=== PATIENT | male | born 1935 | race Caucasian/White ===

== ENCOUNTER 2016-10-04 13:46 | Inpatient (IN) | payer OTHER ==
[~2016-10-04 13:46] MED LIST: ETOMIDATE 20 MG/10 ML VIAL IVP ONE; SUCCINYLCHOLINE CHLORIDE 200 MG/10 ML VIAL IVP ONE
[2016-10-04 14:03] LABS: % IMMATURE GRANULYOCYTES 0.9 % (0.0-1.1); ABSOLUTE IMMATURE GRANULOCYTES 0.07 10^3/uL (0.00-0.10); ADD DIFF? NO; ADD MORPH? NO; ADD SCAN? NO; ATYPICAL LYMPHOCYTE FLAG 10 (0-99); FRAGMENT RBC FLAG 0 (0-99); HEMATOCRIT 46.8 % (40.0-51.0); LEFT SHIFT FLG 0 (0-99); LIPEMIA HEMOLYSIS FLAG 70 (0-99); MEAN CELL HEMOGLOBIN 31.7 pg (27.9-34.1); MEAN CELL HEMOGLOBIN CONCENTR. 29.9 g/dL (32.4-36.7); MEAN CELL VOLUME 105.9 fL (81.5-99.8); PLATELET CLUMPS FLAG 0 (0-99); PLATELET COUNT 174 10^3/uL (150-400); RED BLOOD CELL COUNT 4.42 10^6/uL (4.40-6.38); RED CELL DISTRIBUTION WIDTH 13.8 % (11.5-15.2)
--- NOTE | 2016-10-04 14:06 | EDPHY ---
H & P Time Seen by Provider: 10/04/16 13:44 HPI/ROS: CHIEF COMPLAINT: Stroke alert, unresponsive HISTORY OF PRESENT ILLNESS: This patient is an 80-year-old male who presents to the Emergency Department via EMS after he was found unresponsive by bystanders in the [employer] parking lot at 1330 this afternoon. Per EMS, the patient was walked out to his car by a store manager. When he sat down into the car, he became acutely unresponsive and bystanders reported an apparent left facial droop at that time. Upon EMS arrival, bystanders were performing CPR. Paramedics measured the patient's HR at 40 with strong pulses upon their arrival ; they stopped CPR and placed patient on BVM. He became tachycardic up to 200 in transport before returning to stable HR at 80 for the remainder of transport. Further history is unobtainable secondary to the patient's unresponsive condition. REVIEW OF SYSTEMS: ROS is unobtainable secondary to the patient's unresponsive condition. Past Medical/Surgical History: Unobtainable secondary to the patient's condition Social History: Unknown Physical Exam: General Appearance: Unresponsive, under manual ventilation Eyes: Pupils equal and unreactive ENT, Mouth: Mucous membranes moist Respiratory: Lungs are clear to auscultation Cardiovascular: Regular rate and rhythm Gastrointestinal: Abdomen is soft Neurological: Upgoing toes bilaterally and withdrawal in both lower extremities , unresponsive to painful stimuli, no response to sternal rubbing Skin: Warm and dry, no rash, no abrasions or lacerations Extremities: Normal appearing Constitutional: Initial Vital Signs Temperature (C) 36.4 C 10/04/16 13:46 Heart Rate 86 10/04/16 13:46 Blood Pressure 195/91 H 10/04/16 13:46 O2 Sat (%) 94 10/04/16 13:46 O2 Delivery Mode Ventilator O2 (L/minute) 100 Allergies/Adverse Reactions: No Known Allergies Allergy (Unverified 10/04/16 22:15) Home Medications: Medication Instructions Recorded Unobtainable 10/04/16 Medical Decision Making - Diagnostics EKG Interpretation: EKG interpreted by me reveals normal sinus rhythm, rate 79; first degree AV block; probable left atrial abnormality; RBBB and LAFB. Imaging Results: Chest X-Ray 10/04/16 13:48 Impression: Possible mild infiltrate or atelectasis right midlung. Recommend follow-up. ET tube in good position without evidence for pneumothorax. Head CT 10/04/16 13:48 Impression: 1. Possible dense left MCA which could be secondary to thrombus versus artifact. No other findings for acute infarct. No evidence for intracranial hemorrhage. 2. Periventricular and deep hemispheric white matter change that can be seen with small vessel ischemic disease. 3. Generalized cerebral atrophy. Results called to Dr. Hamida Ferrera at 1417 hours on 04 October 2016. Procedures: Procedure: Rapid sequence intubation. Indication for the procedure was respiratory failure. The patient was preoxygenated with 100% oxygen by face mask. The patient was given the following IV medications: 20mg IV Etomidate and 100mg IV succinylcholine. The patient was orally endotracheally intubated under direct visualization] with a 7.5 ETT. Tracheal intubation was confirmed with misting on the tube; breath sounds were auscultated equally bilaterally; appropriate color change with [place] CO2 detector. Chest X-ray shows ETT in good position. The procedure was performed by myself, Dr. Ferrera. ED Course/Re-evaluation: 1343: Stroke Alert called into the ED by EMS. Ambulance is five minutes out. Respiratory therapy has been paged. 1345: Respiratory therapist at bedside. 1346: Took EMS report at bedside: Physical exam per EMS: right-sided facial droop (per bystanders only), active gag reflex, good femoral and carotid pulses , variable HR. Vitals: BP 128/58, HR 88-100, BGL 162, 12-lead EKG not obtained. Interventions: CPR stopped at time of EMS arrival to scene, BVM ventilation performed throughout transport. 1348: 18-gauge IV established right AC. RT present, set up for intubation. 1349: Initial vitals obtained: HR 90, O2 sat 96% on BVM, Temp 36.4C. 1352: 20mg IV Etomidate administered. 1353: 100mg IV Succinylcholine administered. 1354: 16-gauge established on right forearm. 1355: Intubation performed by myself under direct visualization (see procedure note). 1355: i-Stat results obtained. 1356: Stat portable chest x-ray ordered. 1358: Chest x-ray obtained and reveals ETT in good position, no infiltrate 1402: EKG obtained and reviewed by myself. 1405: Patient transferred to CT. Will obtain CT of the head without contrast. If normal, will proceed with CTA of the head and neck at the suggestion of the on-call [facility] neurologist who was contacted at time of Stroke Alert call. 1418: CT of the head is negative per Dr. Devine, radiology. 1426: Consultation with Dr. Stapleton, [facility] neurologist. He recommends the following: If CTA is negative for thrombosis, no tPA is indicated. If positive, repeat consultation for management. 1436: Patient returned from CT. He is hypotensive at 72/49 after receiving Propofol 60mg IV for agitation. IVF given, will obs for now. Neuro exam: moving RUE and bilateral feet/ankles spontaneously. 1450: Neuro exam improved: opens eyes and gives a thumbs-up sign (both hands) to command. BP improved at 107/64. CTA head/neck negative for acute CVA. TPA not indicated. Possible primary respiratory arrest vs seizure vs cardiac event. Now improving. Consulted Dr. Wylie, will admit to ICU. Differential Diagnosis: Altered mental status including but not limited to ICH/CVA, acute coronary syndrome, pulmonary embolism, hypoglycemia, infectious process, electrolyte abnormality, head injury and intoxicants. Critical Care Time: Critical care time spent by me, Dr. Ferrera, exclusively with this patient was 45 minutes, exclusive of PA time and exclusive of procedures. The organ systems at risk were the cardiovascular, respiratory, and nervous systems and I emergently evaluated the patient, performed intubation upon arrival, repeatedly consulted with [facility] neurology, ordered stat imaging studies, and serially evaluated the patient in the ED to prevent worsening of the patient's condition. - Data Points Laboratory Results: Laboratory Results 10/04/16 13:54 10/04/16 13:54 Medications Given: Discontinued Medications Etomidate (Etomidate) 20 mg IVP EDNOW ONE Stop: 10/04/16 13:31 Last Admin: 10/04/16 13:50 Dose: 20 mg Heparin Sodium (Porcine) (Heparin Injection) 0 unit IVP ONCE ONE PRN Reason: Protocol Stop: 10/04/16 21:53 Last Admin: 10/04/16 23:13 Dose: 5 units Pantoprazole Sodium 40 mg/ (Sodium Chloride) 100 mls @ 200 mls/hr IV DAILY PASHA Stop: 04/02/17 15:29 Last Admin: 10/04/16 17:46 Dose: Not Given Cefepime HCl 2 gm/ Dextrose 100 mls @ 200 mls/hr IV Q12HRS PASHA PRN Reason: Protocol Stop: 11/03/16 15:26 Last Admin: 10/04/16 17:34 Dose: Not Given Azithromycin 500 mg/ Dextrose 255 mls @ 255 mls/hr IV ONCE ONE PRN Reason: Protocol Stop: 10/04/16 18:00 Last Admin: 10/04/16 17:56 Dose: 255 mls Midazolam HCl (Versed) 2 mg IVP ONCE ONE Stop: 10/04/16 16:06 Last Admin: 10/04/16 15:25 Dose: 2 mg Propofol (Diprivan) 60 mg IVP EDNOW ONE Stop: 10/04/16 14:31 Last Admin: 10/04/16 14:59 Dose: 60 mg Succinylcholine Chloride (Quelicin) 100 mg IVP EDNOW ONE Stop: 10/04/16 13:31 Last Admin: 10/04/16 13:50 Dose: 100 mg Departure - Departure Disposition: [facility] Inpatient Acute Clinical Impression: Acute respiratory failure Qualifiers: Respiratory failure complication: hypoxia and hypercapnia Qualified Code(s): J96.01 - Acute respiratory failure with hypoxia Condition: Critical Report Scribed for: Hamida Ferrera Report Scribed by: Jodi Velasquez Date of Report: 10/04/16 Time of Report: 13:45 Physician Review and Approval Statement: 10/04/16 13:45 Portions of this note were transcribed by a medical services manager. I personally performed a history, physical exam, medical decision making, and confirmed accuracy of information the transcribed note.
[2016-10-04 14:12] LABS: INR 1.08 (0.83-1.16); PROTIME(PATIENT) 13.9 SEC (12.0-15.0)
[2016-10-04 14:13] LABS: APTT 25.9 SEC (23.0-38.0)
[2016-10-04] MEDS ORDERED: PROPOFOL 200 MG/20 ML VIAL ONE (14:16)
[2016-10-04 14:19] LABS: ANION GAP 15 mEq/L (8-16); CARBON DIOXIDE 33 mEq/l (22-31); CHLORIDE 93 mEq/L (97-110); GLOMERULAR FILTRATION RATE > 60; GLUCOSE 165 mg/dL (70-100); POTASSIUM 4.8 mEq/L (3.5-5.2); SODIUM 141 mEq/L (134-144)
[2016-10-04] MEDS ORDERED: PROPOFOL 200 MG/20 ML VIAL IVP ONE (14:30)
[2016-10-04 14:31] LABS: TROPONIN I 0.054 ng/mL (0-0.034)
--- NOTE | 2016-10-04 14:38 | CPEKG ---
Heart Rate: 79 RR Interval: 759 P-R Interval: 216 QRSD Interval: 172 QT Interval: 432 QTC Interval: 496 P [place]: -14 QRS [place]: -81 T Wave [place]: 69 EKG Severity - ABNORMAL ECG - EKG Impression: SINUS RHYTHM EKG Impression: PROBABLE LEFT ATRIAL ABNORMALITY EKG Impression: RBBB AND LAFB Electronically Signed By: Hamiad Ferrera 04-Oct-2016 14:42:38
[2016-10-04] MEDS ORDERED: MIDAZOLAM 2 MG/2 ML VIAL ONE (14:51)
[2016-10-04 15:04] LABS: BASE EXCESS 6.5 mEq/L (-2.5-2.5); BICARBONATE 33 mEq/L (22-26); MEASURED OXYGEN SATURATION 100 % (92-95); PCO2 57 mmHg (34-38); PO2 406 mmHg (65-75); TCO2 35 mEq/L (23-27)
[2016-10-04 15:05] LABS: SIMV YES
[2016-10-04 15:06] LABS: O2 CONCENTRATIION 100 % (0-100); P/F RATIO 406 RATIO; PRESSURE SUPPORT 2
[2016-10-04] MEDS ORDERED: ALTEPLASE 2 MG VIAL IVP PRN (15:19)
[2016-10-04] MEDS ORDERED: ACETAMINOPHEN 650 MG SUPP PR PRN (15:21)
[2016-10-04] MEDS ORDERED: CEFEPIME HCL 2 GM in D5W 100 ML IV SCH (15:27)
[2016-10-04] MEDS ORDERED: NS 1,000 ML IV SCH (15:30)
[2016-10-04] MEDS ORDERED: PANTOPRAZOLE SODIUM 40 MG in NS 100 ML IV SCH (15:30)
[2016-10-04] MEDS ORDERED: ALBUTEROL 60 PUFFS/8 GM MDI IH PRN (15:33)
[2016-10-04] MEDS ORDERED: D50W 25 GM/50 ML SYR IVP PRN (15:35)
[2016-10-04] MEDS ORDERED: MIDAZOLAM 2 MG/2 ML VIAL IVP ONE (16:05)
--- NOTE | 2016-10-04 16:14 | CPEKG ---
Heart Rate: 65 RR Interval: 923 P-R Interval: 200 QRSD Interval: 176 QT Interval: 472 QTC Interval: 491 P [place]: 69 QRS [place]: -75 T Wave [place]: 66 EKG Severity - ABNORMAL ECG - EKG Impression: SINUS RHYTHM EKG Impression: RBBB AND LAFB Electronically Signed By: Rod Matt 05-Oct-2016 09:33:11
[2016-10-04] MEDS ORDERED: SUCCINYLCHOLINE CHLORIDE*ANESTHESIA ONLY*200 MG/10 ML SYR IVP ONE (16:21)
[2016-10-04] MEDS ORDERED: ETOMIDATE 40 MG/20 ML INJ ONE (16:21)
--- NOTE | 2016-10-04 16:26 | PDGENHP ---
History and Physical - Chief Complaint cardiac versus respiratory arrest - History of Present Illness 81 yo M with PMH of copd and o2 dependence presenting after being found in [employer] parking lot slumped over and with a ? of a facial droop by bystanders. The bystanders also felt that he did not have a pulse and was not breathing, and they initiated CPR waiting for EMS to arrive. Upon arrival, EMS noted that he did have a pulse, initially guillermina then tachycardic, but that his respiration was poor. He was bag masked en route to the ER and intubated for continued respiratory distress on arrival here. On initial arrival to the ER, he was completely unresponsive, no purposeful movements, no withdrawal to pain and upgoing toes bilaterally. After intubation he regained purposeful movements, was following commands and able to respond to questions by nodding, however shortly thereafter became agitated and has been requiring sedation to avoid dislodging ETT. Unfortunately family has not been located so far, and no records are available in [facility] or our EHR. He did nod his head when asked if he has copd and o2 was found in his car. It does seem that he had the oxygen on when he was found by EMS but not certain whether he was wearing it while in the store or not. History Information - Allergies/Home Medication List Allergies/Adverse Reactions: Unable to Assess Allergy (Unverified 10/04/16 14:53) Home Medications: Unobtainable 10/04/16 [Last Taken Unknown] I have personally reviewed and updated: family history, medical history, social history, surgical history Past Medical History: unobtainable 2/2 paitents status--presumed to include copd and chronic hypoxia - Surgical History Additional surgical history: unobtainable 2/2 patients status - Family History Additional family history: unobtainable 2/2 patient status - Social History Smoking Status: Unknown if ever smoked Additional social history: unobtainable Review of Systems Review of Systems: unobtainable 2/2 patients status Physical Exam Temp Pulse Resp BP Pulse Ox 36.9 C 48 L 21 H 125/78 H 98 10/04/16 15:15 10/04/16 15:50 10/04/16 15:50 10/04/16 15:50 10/04/16 15:50 O2 (L/minute) 40 Constitutional: no apparent distress, appears nourished Eyes: PERRL, EOMI Ears, Nose, Mouth, Throat: moist mucous membranes, no oral mucosal ulcers Cardiovascular: regular rate and rhythym, no murmur, rub, or gallop Respiratory: bronchial breath sounds, other (intubated) Gastrointestinal: normoactive bowel sounds, soft, non-tender abdomen Genitourinary: no bladder tenderness Skin: warm, normal color Musculoskeletal: full muscle strength, no joint effusions, No asymmetric calves Neurologic: CN II-XII Intact, No weakness Psychiatric: other (intubated and sedated) Lab Data & Imaging Review 10/04/16 13:54 10/04/16 13:54 WBC 8.00 10^3/uL (3.80-9.50) 10/04/16 13:54 RBC 4.42 10^6/uL (4.40-6.38) 10/04/16 13:54 Hgb 14.0 g/dL (13.7-17.5) 10/04/16 13:54 Hct 46.8 % (40.0-51.0) 10/04/16 13:54 MCV 105.9 fL (81.5-99.8) H 10/04/16 13:54 MCH 31.7 pg (27.9-34.1) 10/04/16 13:54 MCHC 29.9 g/dL (32.4-36.7) L 10/04/16 13:54 RDW 13.8 % (11.5-15.2) 10/04/16 13:54 Plt Count 174 10^3/uL (150-400) 10/04/16 13:54 MPV 11.0 fL (8.7-11.7) 10/04/16 13:54 Neut % (Auto) 57.2 % (39.3-74.2) 10/04/16 13:54 Lymph % (Auto) 32.1 % (15.0-45.0) 10/04/16 13:54 Desha % (Auto) 7.5 % (4.5-13.0) 10/04/16 13:54 Eos % (Auto) 1.9 % (0.6-7.6) 10/04/16 13:54 Baso % (Auto) 0.4 % (0.3-1.7) 10/04/16 13:54 Nucleat RBC Rel Count 0.0 % (0.0-0.2) 10/04/16 13:54 Absolute Neuts (auto) 4.58 10^3/uL (1.70-6.50) 10/04/16 13:54 Absolute Lymphs (auto) 2.57 10^3/uL (1.00-3.00) 10/04/16 13:54 Absolute Monos (auto) 0.60 10^3/uL (0.30-0.80) 10/04/16 13:54 Absolute Eos (auto) 0.15 10^3/uL (0.03-0.40) 10/04/16 13:54 Absolute Basos (auto) 0.03 10^3/uL (0.02-0.10) 10/04/16 13:54 Absolute Nucleated RBC 0.00 10^3/uL (0-0.01) 10/04/16 13:54 Immature Gran % 0.9 % (0.0-1.1) 10/04/16 13:54 Immature Gran # 0.07 10^3/uL (0.00-0.10) 10/04/16 13:54 PT 13.9 SEC (12.0-15.0) 10/04/16 13:54 INR 1.08 (0.83-1.16) 10/04/16 13:54 APTT 25.9 SEC (23.0-38.0) 10/04/16 13:54 Puncture Site RIGHT RADIAL 10/04/16 15:02 Patient Temperature 36.4 DEGREES 10/04/16 15:02 pCO2 57 mmHg (34-38) H 10/04/16 15:02 pO2 406 mmHg (65-75) H 10/04/16 15:02 Total CO2 35 mEq/L (23-27) H 10/04/16 15:02 ABG pH 7.37 (7.35-7.45) 10/04/16 15:02 ABG PO2/FiO2 Ratio 406 RATIO 10/04/16 15:02 ABG HCO3 33 mEq/L (22-26) H 10/04/16 15:02 ABG O2 Saturation 100 % (92-95) H 10/04/16 15:02 ABG Base Excess 6.5 mEq/L (-2.5-2.5) H 10/04/16 15:02 O2 Concentration % 100 % (0-100) 10/04/16 15:02 Set Respiration Rate 20 10/04/16 15:02 SIMV YES 10/04/16 15:02 Tidal Volume 600 10/04/16 15:02 PEEP 5 10/04/16 15:02 Pressure Support 2 10/04/16 15:02 Sodium 141 mEq/L (134-144) 10/04/16 13:54 Potassium 4.8 mEq/L (3.5-5.2) 10/04/16 13:54 Chloride 93 mEq/L (97-110) L 10/04/16 13:54 Carbon Dioxide 33 mEq/l (22-31) H 10/04/16 13:54 Anion Gap 15 mEq/L (8-16) 10/04/16 13:54 BUN 34 mg/dL (7-23) H 10/04/16 13:54 Creatinine 1.0 mg/dL (0.7-1.3) 10/04/16 13:54 Estimated GFR > 60 10/04/16 13:54 Glucose 165 mg/dL (70-100) H 10/04/16 13:54 Calcium 9.0 mg/dL (8.5-10.4) 10/04/16 13:54 Troponin I 0.054 ng/mL (0-0.034) H 10/04/16 13:54 Visualized and Interpreted Chest x-ray results: Yes Chest X-Ray results: infiltrate (vs atelectasis right mid lung) Visualized and Interpreted imaging results: Yes Interpretation: head ct: no definite infarct, ? dense left mca. head/neck cta: no significant stenosis or dissection, normal Visualized and Interpreted EKG results: Yes EKG Interpretation: Positive for: right bundle branch block EKG additional interpertation: LAFB, right atrial abnormality Assessment & Plan Assessment: Acute respiratory failure (Acute) 81 yo M presenting after being found unconscious by bystanders s/p respiratory vs cardiac arrest # acute on chronic hypoxic respiratory failure: intubated emergently in the ER, CXR with ? infiltrate in RML but no other clear abnormalities. Does have presumably underlying copd and chronic hypoxic but no records available on this patient currently. Will tx for copd exacerbation as well as possible pna for now. Another consideration would be for PE, but unable to perform CTA today as already had dye load for head/neck CTA. RBBB present on ecg with echo pending, if that is concerning for right heart strain would start empiric TX dose lovenox until CTA can be performed. Ordered D dimer, if very elevated will start empiric ac. # rml pna: infiltrate in RML atelectasis versus pna, but given patients rapid deterioration will tx as pna for now--started broad tx with cefepime and vanco, ordered blood cultures, repeat cxr in am. If less convincing for pna or other etiology more likely, would quickly taper abx. # copd with acute exacerbation: presumed underlying copd per patients head nod, will start albuterol, combivent and steroids # ? facial droop: presented as possible stroke, currently appears neurologically intact and without evidence of infarct or significant vascular issues on imaging so far. Will ask neuro to evaluate in am. # elevated trop: no olds to compare his ecg but with both rbbb and lafb on current ecg, echo ordered as above, monitoring on tele, trending trops. Unclear if patient had true cardiac arrest as noted by bystanders given presence of pulse on EMS arrival. # hypotension: proufoundly hypotensive after propofol given in ER, now hypertensive, monitoring closely, continue sedation as needed # IP status, high risk requiring ICU level care > 60 minutes of critical care time spent with patient in direct patient care interpreting labs and images and coordinating care Care plan reviewed with ER doc, Dr. Ferrera. Patient new to my care.
[2016-10-04] MEDS ORDERED: ALBUTEROL 200 PUFFS/18 GM MDI IH PRN (16:31)
[2016-10-04 16:34] LABS: COLOR YELLOW; LEUKOCYTE ESTERASE,URINE NEGATIVE (NEGATIVE); NITRITE,URINE NEGATIVE (NEGATIVE)
[2016-10-04 16:39] LABS: MUCUS TRACE /lpf (NONE-1+); RBC,URINE 25-50 /hpf (0-3)
[2016-10-04] MEDS ORDERED: AZITHROMYCIN IV 500 MG in D5W 250 ML IV ONE (17:01)
[2016-10-04 17:04] LABS: PHENCYCLIDINE URINE BCH < 6 ng/ml (NEGATIVE); PHENCYCLIDINE URINE BCH NEGATIVE (NEGATIVE)
[2016-10-04 17:07] LABS: ETHANOL SERUM < 10 mg/dL (0-10)
[2016-10-04] MEDS ORDERED: hydrALAZINE 20 MG/ML VIAL ONE (17:13)
[2016-10-04 17:15] LABS: TETRAHYDROCANNABINOL URINE 127 ng/mL (NEGATIVE)
[2016-10-04] MEDS: IPRATROPIUM/ALBUTEROL 3 ML DEYVIAL IH SCH (17:31)
[2016-10-04] MEDS: hydrALAZINE 20 MG/ML VIAL IVP PRN (17:33)
[2016-10-04 17:51] LABS: ALBUMIN 4.6 g/dL (3.5-5.0); BILIRUBIN-CONJUGATED 0.5 mg/dL (0.0-0.5); BILIRUBIN-UNCONJUGATED 0.5 mg/dL (0.0-1.1)
[2016-10-04] MEDS: INSULIN LISPRO 100 UNIT/ML SC SCH (17:52)
[2016-10-04] MEDS: methylPREDNISolone SOD SUCC 125 MG/2 ML VIAL IVP SCH ×2 (17:56→17:57)
[2016-10-04] MEDS ORDERED: VANCOMYCIN 1.5 GM in D5W 250 ML IV SCH (18:00)
--- NOTE | 2016-10-04 18:52 | GCON ---
[f rep st] CONSULTATION PULMONARY CRITICAL CARE CONSULTATION HISTORY OF PRESENT ILLNESS: The patient is an 81-year-old male who has a very vague past medical hi story, but apparently was visiting [place] from [place], [place], at the [employer]. He apparent ly needed assistance to his car, and once in his vehicle, became unresponsive. Bystanders called 91 1 and started CPR apparently. When the EMS arrived, he had a heart rate in the 40s. He was intubat ed on scene, with normalization of blood pressure and heart rate. [facility] with etomidate and succinylcholine. There was also discussion of a left facial droop on scene, so a stroke alert was called. A CT scan suggested possible dense left MCA infarct; however, a subsequent CT angiogram of the neck and head were unremarkable, showing no s ignificant stenosis, and Dr. Dominique from [facility] said that no tPA was indicated. The patie nt was then transferred to the intensive care unit where he was having difficulty following some com mands due to agitation. His oxygen saturation and blood pressure were high. The heart rate was nev er low while in the ICU. 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 He did not feel that he had been ill prior to coming, and suspected that he ran out of oxygen in route. REVIEW OF SYSTEMS: He denies previous stroke, coronary artery disease, or arrhythmias, but reports what he described as borderline hypertension. He was unable to recall any medications that he pollo garsia takes, other than Proventil. PAST SURGICAL HISTORY: Includes appendectomy and tonsillectomy. SOCIAL HISTORY: He said he has a significant smoking history, but quit 20 years ago. He also has a history of alcoholism, but has been sober for the last 20 years. He denies any other recreational drugs, other than marijuana in the past. FAMILY HISTORY: Noncontributory at this time. MEDICATIONS: Unknown. PHYSICAL EXAM: VITAL SIGNS: He was afebrile. He had an oxygen saturation of 98% on [address] L. Heart ra te of 91, with a sinus tachycardia. Blood pressure 188/91. Respirations about 18 after extubation. GENERAL APPEARANCE: He was awake and alert, and followed simple commands. Was able to move all e xtremities. He was using pursed lip respirations. He was oriented to self and location. HEENT: P upils were equally round and reactive to light, nonicteric and noninjected. Mucous membranes are mo ist, without erythema or exudate. NECK: Supple, without adenopathy or jugular vein distention. KASH NGS: Breath sounds were distant, but clear to auscultation bilaterally, without wheeze, rubs, rales . HEART: Had appeared to have a regular rate and rhythm, without murmurs, rubs, gallops. ABDOMEN: Soft, nontender, nondistended, without hepatosplenomegaly. EXTREMITIES: Showed no clubbing, cyan osis, or edema. LABORATORY DATA: Includes the head CT, as described above. A chest x-ray suggests a possible infiltrate in the right mid lung, I think that is rib. There may be some tiny nodules in the bilateral upper lobes that were not reported by radiology. His EKG shows a right bundle, and left anterior fascicular block, but no obvious ischemic changes. His labs revealed a white count of 8, hematocrit 46.8, platelets of 174. Normal Coags. Blood gas o n the ventilator showed a pH 7.37, pCO2 57, PO2 406, bicarbonate 35, saturation of 100%. Sodium is 141, potassium 4.8, chloride 93, bicarbonate 33, BUN 34, creatinine 1.0, glucose 165. Troponin 0.05 4. Urinalysis shows a specific gravity greater than 1.035, 3+ protein, 2+ blood, 25-50 red cells, b ut no significant white cells, no evidence of infection. Toxicology screen is pending at this time, as well as a blood alcohol level. ASSESSMENT AND PLAN: 1. What sounds to be more of a syncopal episode than a true cardiac arrest. This may be driven by hypoxemia, which potentially could explain his bradycardic episodes as well. In any case, he seems to have recovered, is in normal sinus rhythm now, and careful monitoring will be required. It is un certain to me about the potential stroke, so we will have to reach out to Neurology for further guid ance on this. There is certainly nothing focal at this time. 2. Respiratory failure. I believe this is due to his underlying chronic obstructive pulmonary dise ase, and if the above theory is correct, from running out of oxygen. I agree with treating him as a COPD exacerbation with steroids, bronchodilators, and short-term antibiotics until more information can be obtained. He is down to his reported baseline oxygen requirement at this time, and he certa inly shows evidence of CO2 retention chronically, which may be an ongoing issue. He denies a histor y of CPAP or obstructive sleep apnea overlap syndrome. 3. Hypertension. Until we can clarify his medications, we will use hydralazine as a p.r.n. basis f or now. His heart rate is in the 90s. I would normally use a beta jacqui, recognizing that they a re quite safe in COPD, but given his recent bradycardic episodes, I think we should avoid that for n ow. 4. Bradycardia. Cardiology consult would likely be helpful at this time. The mechanism could eith er be from hypoxemia or additional heart block, in a situation where he has bifascicular block. Ser ial troponins and an echo are pending at this time. 5. A total of about 65 minutes of critical care time was required for this complicated and unstable pat ient. /[id number]/MODL
--- NOTE | 2016-10-04 19:34 | CPEKG ---
Heart Rate: 86 RR Interval: 698 P-R Interval: 236 QRSD Interval: 190 QT Interval: 436 QTC Interval: 522 P Mcgregor: -1 QRS [place]greg[place]: -64 T Wave [place]: 62 EKG Severity - ABNORMAL ECG - EKG Impression: SINUS RHYTHM EKG Impression: PAIRED VENTRICULAR PREMATURE COMPLEXES EKG Impression: FIRST DEGREE AV BLOCK EKG Impression: RBBB AND LAFB Electronically Signed By: Rod Matt 05-Oct-2016 09:12:12
--- NOTE | 2016-10-04 21:45 | CPEKG ---
Heart Rate: 99 RR Interval: 606 P-R Interval: 192 QRSD Interval: 176 QT Interval: 388 QTC Interval: 498 P [place]: 0 QRS [place]: -69 T Wave [place]: 71 EKG Severity - ABNORMAL ECG - EKG Impression: SINUS RHYTHM EKG Impression: RBBB AND LAFB Electronically Signed By: Rod Matt 05-Oct-2016 09:10:39
[2016-10-04] MEDS ORDERED: HEPARIN 10,000 UNIT/10 ML MDV IVP ONE (21:52)
[2016-10-04] MEDS ORDERED: HEPARIN 10,000 UNIT/10 ML MDV IVP PRN (21:52)
[2016-10-04] MEDS ORDERED: HEPARIN/DEXTROSE 500 ML IV SCH (22:00)
[2016-10-04 22:22] LABS: % IMMATURE GRANULYOCYTES 0.9 % (0.0-1.1); ADD DIFF? NO; ADD MORPH? NO; ADD SCAN? NO; ATYPICAL LYMPHOCYTE FLAG 0 (0-99); FRAGMENT RBC FLAG 0 (0-99); HEMATOCRIT 44.5 % (40.0-51.0); HEMOGLOBIN 13.2 g/dL (13.7-17.5); LEFT SHIFT FLG 10 (0-99); LIPEMIA HEMOLYSIS FLAG 70 (0-99); MEAN CELL HEMOGLOBIN 31.2 pg (27.9-34.1); MEAN CELL HEMOGLOBIN CONCENTR. 29.7 g/dL (32.4-36.7); MEAN CELL VOLUME 105.2 fL (81.5-99.8); MEAN PLATELET VOLUME 11.7 fL (8.7-11.7); PLATELET CLUMPS FLAG 0 (0-99); PLATELET COUNT 143 10^3/uL (150-400); RED BLOOD CELL COUNT 4.23 10^6/uL (4.40-6.38); RED CELL DISTRIBUTION WIDTH 14.1 % (11.5-15.2)
[2016-10-04 22:35] LABS: INR 1.08 (0.83-1.16); PROTIME(PATIENT) 13.9 SEC (12.0-15.0)
[2016-10-04 22:44] LABS: APTT 29.4 SEC (23.0-38.0)
[2016-10-05] MEDS: IPRATROPIUM/ALBUTEROL 3 ML DEYVIAL IH SCH ×4 (00:37→16:35)
[2016-10-05] MEDS: methylPREDNISolone SOD SUCC 125 MG/2 ML VIAL IVP SCH ×3 (01:08→11:44)
[2016-10-05 05:40] LABS: % IMMATURE GRANULYOCYTES 1.3 % (0.0-1.1); ABSOLUTE IMMATURE GRANULOCYTES 0.11 10^3/uL (0.00-0.10); ADD DIFF? NO; ADD MORPH? NO; ADD SCAN? NO; ATYPICAL LYMPHOCYTE FLAG 0 (0-99); FRAGMENT RBC FLAG 0 (0-99); HEMATOCRIT 42.5 % (40.0-51.0); HEMOGLOBIN 12.6 g/dL (13.7-17.5); LEFT SHIFT FLG 10 (0-99); LIPEMIA HEMOLYSIS FLAG 70 (0-99); MEAN CELL HEMOGLOBIN 31.4 pg (27.9-34.1); MEAN CELL HEMOGLOBIN CONCENTR. 29.6 g/dL (32.4-36.7); MEAN PLATELET VOLUME 10.4 fL (8.7-11.7); PLATELET CLUMPS FLAG 10 (0-99); PLATELET COUNT 111 10^3/uL (150-400); RED BLOOD CELL COUNT 4.01 10^6/uL (4.40-6.38)
[2016-10-05 05:52] LABS: ANION GAP 9 mEq/L (8-16); CALCIUM 8.3 mg/dL (8.5-10.4); CARBON DIOXIDE 35 mEq/l (22-31); CHLORIDE 97 mEq/L (97-110); CREATININE 0.8 mg/dL (0.7-1.3); GLOMERULAR FILTRATION RATE > 60; GLUCOSE 142 mg/dL (70-100); MAGNESIUM 1.8 mg/dL (1.6-2.3); POTASSIUM 4.6 mEq/L (3.5-5.2); SODIUM 141 mEq/L (134-144)
[2016-10-05 06:05] LABS: TROPONIN I 0.099 ng/mL (0-0.034)
[2016-10-05] MEDS: INSULIN LISPRO 100 UNIT/ML SC SCH ×3 (07:26→18:47)
[2016-10-05] MEDS: hydrALAZINE 20 MG/ML VIAL IVP PRN (07:41)
[2016-10-05] MEDS: AZITHROMYCIN IV 250 MG in D5W 250 ML IV SCH (08:53)
--- NOTE | 2016-10-05 08:59 | CPEKG ---
Heart Rate: 91 RR Interval: 659 P-R Interval: 228 QRSD Interval: 180 QT Interval: 416 QTC Interval: 512 P [place]: -31 QRS [place]: -80 T Wave [place]: 51 EKG Severity - ABNORMAL ECG - EKG Impression: SINUS RHYTHM EKG Impression: FIRST DEGREE AV BLOCK EKG Impression: RBBB AND LAFB Electronically Signed By: Aaron Brooks 05-Oct-2016 17:40:02
[2016-10-05] MEDS ORDERED: ENOXAPARIN 40 MG/0.4 ML SYR SC SCH (09:00)
--- NOTE | 2016-10-05 09:08 | ECHO ---
[id number] + + [address] : : [place] [address] : : [phone] + + Adult Echocardiographic Report + + :Name: OLENA FITZGERALD FStudy Date: 10/05/2016 07:34 AM : : Hospital Admission Number: [id number] Loc ation: 255: :: 1935 Gender: Male Height: 72 in : :Age: 81 yrs Race: WH Weight: 200 lb : :Reason For Study: Respiratory vs cardiac arrest : : BSA: 2.1 me ters2 : + + MMode/2D Measurements \T\ Calculations IVSd: 1.7 cm LVIDd: 5.7 cm FS: 20.5 % Ao root diam: LVPWd: 1.3 cm LVIDs: 4.6 cm EDV(Teich): 4.1 cm 162.4 ml LA dimension: ESV(Teich): 4.1 cm 95.4 ml EF(Teich): 41.3 % LVLd ap4: 9.5 cm SV(MOD-sp4): EDV(MOD-sp4): 108.0 ml 150.0 ml LVLs ap4: 7.4 cm ESV(MOD-sp4): 42.0 ml EF(MOD-sp4): 72.0 % Normal Measurement Values: + + :LVIDd (3.5-5.7cm) IVSd (0.6-1.1cm) LVPWd (0.6-1.1cm) Aortic Root (2.0-3.7cm)Left Atrium (1.5-4.0cm): :LV Vol(d) (76-115ml) LV Vol(s) (29-48ml) Ejec Fraction (50-65%)PV Matt (0.6- 1.2m/s) TV Matt (0.4-1.0m/s) : :MV E Matt (0.8-1.0m/s)MV A Matt (0.3-1.0m/s)LVOT Matt (0.7-1.2m/s) Asc Ao Matt ( 0.9-1.8m/s) : + + Doppler Measurements \T\ Calculations MV E max matt: 85.5 cm/sec Ao V2 max: 172.8 cm/sec MV A max matt: 124.5 cm/sec Ao max P.9 mmHg MV E/A: 0.69 Left Ventricle The left ventricle is normal in size. There is mild concentric left ventricular hypertrophy. The left ventricle is hyperdynamic. Ejection Fraction = 70-75%. No regional wall motion abnormalities noted. Right Ventricle The right ventricle is normal in size and function. Atria The left atrial size is normal. The right atrium is mildly dilated. The interatrial septum is intact with no evidence for an atrial septal defect. Mitral Valve The mitral valve is normal in structure and function. There is no evidence of mitral valve prolapse. There is no mitral valve stenosis. There is trace mitral regurgitation. Tricuspid Valve Normal tricuspid valve. Aortic Valve The aortic valve opens well. There is no aortic stenosis. Mild aortic regurgitation. Pulmonic Valve The pulmonic valve is normal in structure and function. Mild to moderate pulmonic valvular regurgitation. Great Vessels The aortic root is normal size. Pericardium/Pleural There is no pericardial effusion. Conclusion A complete two-dimensional transthoracic echocardiogram was performed (2D, M-mode, Doppler and color flow Doppler). There is mild concentric left ventricular hypertrophy. The left ventricle is hyperdynamic. Ejection Fraction = 70-75%. The right atrium is mildly dilated. There is trace mitral regurgitation. Mild aortic regurgitation. Mild to moderate pulmonic valvular regurgitation. Final Reading Physician: Cande Sherwood signed on 10/05/2016 09:08 AM Ordering Physician: Lemuel Wylie Performed By: Krys Bynum, REHANA
--- NOTE | 2016-10-05 11:38 | PDINTPN ---
Brake Press Operator Progress Note Assessment/Plan: Assessment: Syncope: Likely due to hypoxemia, respiratory failure. No further episodes, no arrhythmias documented in hospital. COPD w/acute exacerbation: He's had increased dyspnea and cough with scant sputum compared to baseline. D-dimer elevated: PE a possibility. Bradycardia: Likely due to hypoxemia. Plan: Reduce steroid dose. Continue azithro. Restart inhalers. CT chest to R/O PE. 10/05/16 11:43 10/05/16 11:44 Subjective: Feels poorly: weak. Still dyspneic with activity, moreso than baseline. Objective: Vital Signs Temp Pulse Resp BP Pulse Ox 36.9 C 90 16 163/84 H 92 10/05/16 08:00 10/05/16 11:00 10/05/16 11:00 10/05/16 10:00 10/05/16 11:00 Laboratory Results 10/05/16 05:20 10/05/16 05:20 10/04/16 10/05/16 10/06/16 05:59 05:59 05:59 Intake Total 1448 Output Total 750 Balance 698 PT 13.9 SEC (12.0-15.0) 10/04/16 21:50 INR 1.08 (0.83-1.16) 10/04/16 21:50 Physical Exam - Physical Exam General Appearance: alert, no apparent distress EENT: normal ENT inspection Neck: normal inspection Respiratory: lungs clear, decreased breath sounds Cardiac/Chest: regular rate, rhythm, No edema Abdomen: normal bowel sounds, non-tender, soft Skin: normal color, warm/dry Extremities: normal inspection Neuro/Psych: alert, normal mood/affect, oriented x 3, cognition abnormalities ( poor memory) ICD10 Worksheet Patient Problems: Problems Problem Status Onset Acute respiratory failure Acute
--- NOTE | 2016-10-05 12:31 | HOSPPROG ---
Hospitalist Progress Note Assessment/Plan: #Acute on chronic hypoxic resp failure -ran out of oxygen yesterday. CTA pending. Normal LV function. Heparin gtt #Indeterminate trop: no CP. May be demand with acute hypoxemic event. TTE without WMA. #COPD exacerbation: nebs, abx, reduce steroids #Bradycardia: likely due to hypoxemic event #Syncope: due to hypoxemia. No valvular abnormalities or events on telemetry #Weakness: PT/OT #Diet: regular #DVT ppx: #Disp: warrants inpt admission with acute hypoxia, syncope. Cont steroids, pulse ox Subjective: been very SOB with exertion for several weeks. No CP. Dry cough Objective: Vital Signs Temp Pulse Resp BP Pulse Ox 36.9 C 103 H 18 151/85 H 96 10/05/16 08:00 10/05/16 12:00 10/05/16 12:00 10/05/16 12:00 10/05/16 12:00 Laboratory Results 10/05/16 05:20 10/05/16 05:20 10/04/16 10/05/16 10/06/16 05:59 05:59 05:59 Intake Total 1448 Output Total 750 Balance 698 PT 13.9 SEC (12.0-15.0) 10/04/16 21:50 INR 1.08 (0.83-1.16) 10/04/16 21:50 - Physical Exam Constitutional: no apparent distress, chronically ill appearing Eyes: PERRL Ears, Nose, Mouth, Throat: moist mucous membranes Cardiovascular: regular rate and rhythym Respiratory: other (decreased breath sounds throughout) Gastrointestinal: normoactive bowel sounds, soft, non-tender abdomen Genitourinary: no bladder fullness Skin: warm Musculoskeletal: full muscle strength Neurologic: AAOx3, CN II-XII Intact Psychiatric: interacting appropriately ICD10 Worksheet Patient Problems: Problems Problem Status Onset Acute respiratory failure Acute
[2016-10-05] MEDS ORDERED: IOPAMIDOL (ISOVUE 370) 100 ML BTL IV ONE (13:59)
[2016-10-05] MEDS: METOPROLOL TARTRATE 25 MG TAB PO SCH ×2 (15:41→22:14)
[2016-10-05] MEDS: TIOTROPIUM INHALER 18 MCG/DOSE 5 DOSE/MDI IH SCH (16:41)
[2016-10-05] MEDS: BUDESONIDE/FORMOTEROL 160/4.5 60 PUFFS/MDI IH SCH ×2 (16:44→21:10)
--- NOTE | 2016-10-05 17:51 | NEUROPROG ---
Assessment: [id number] ICU 255 CC: Dr. Wylie consulted for Cardiac vs Respiratory Arrest. Results placed in the EMR for her review. HPI: This 81M patient was initially seen 10/05/16. He was admitted 10/04/16 to [facility] after he was witnessed to have loss of awareness and possible left facial droop by bystanders. EMS arrived and found him to have a pulse but poor respiration. He became unresponsive in the ER so was intubated but then could answer questions by nodding after intubation. He was given therapy for agitation though so again was not responding to questions. Head CT shows possible dense left MCA but was otherwise normal and head/neck CTA unremarkable. He was intubated overnight but this morning he improved dramatically and was extubated. He currently has no neurologic deficits other than baseline short term memory deficits which his daughter told his nurse was a long-standing problem. He denied focal weakness,sensory changes, or vision issues. It appears his baseline COPD may have had an acute exacerbation causing respiratory arrest to explain his presentation. PMHx: COPD on O2, baseline memory problem SHx: Speaks Chinese FHx: daughter alive ROS: Pt denied acute fever, total vision loss, active severe chest pain, respiratory failure, total body severe rash, total bowel/bladder incontinence, psychosis, active seizures, or active bleeding O: VS bp 151/85 P103H RR18 Satting 96% on 4L NC Temp 36.9C, NSR General: Alert Eyes: Fundoscopic exam not able to visualize optic disks CV: Heart RRR, no murmur, no carotid bruit Lungs: Clear to auscultation bilaterally, no rhonci or rales Neuro: - Mental: . Oriented x person/place but not date . concentration appears normal . speech fluency/comprehension normal . memory appears to have problems with short term recall (mild) . fund of knowledge appear intact - Cranial Nerves: . II: PERRL, VFFTC . III/IV/: EOMI, no nystagmus, normal smooth pursuits, no Ptosis . V: facial sensation intact to LT . VII: face symmetric to eye closure and smile . VIII: hearing intact to conversation . IX/X: uvula raises symmetrically . XI: SCM 5/5 B/L strength . XII: tongue protrudes midline w/nl strength - Motor: . Tone: normal tone in all 4 extrem . Strength: no pronator drift, strength 5/5 throughout (B/L delt, bic, tri, hand united states attorney, hf/he, df/pf) - Reflexes: B/L bic/BR/patella 2/4 - Sensory: all 4 extrem intact to light touch - Coord: [id number] wnl, JACOB wnl, [id number] wnl - Gait: deferred Labs: 10/05/16- CBC Plt 111L, CMP CO2 35H GLuc 142H Ca 8.3L, Trop 0.109, 0.099 Rads: 10/04/16- Head CT w/o con: possible dense left MCA vs artifact, periventricular and deep hemispheric white matter changes likely from chronic microvascular disease, generalized atrophy (I personally visualized the images on 10/05/16) 10/04/16- CTA head/neck: < 50% stenosis in carotid arteries, no flow limiting stenosis,no thrombus seen in the brain 10/04/16- TTE: no thrombus seen 10/05/16- 24 hour telemetry: no afib seen Assessment: 1.Acute on Chronic Respiratory Distress: It appears his baseline COPD requiring O2 had an exacerbation leading to respiratory arrest. He has since improved and now extubated with no respiratory distress on [place] oxygen. 2.Syncope with respiratory arrest and possible left facial droop: It was unclear if he had any neurologic deficits when he passed out but he currently has no neurologic deficits (other than baseline memory issues) and his head CT, CTA head/neck, TTE, and telemetry have not indicated any increased stroke risk. The dense MCA on head CT seems more likely an artifact. He declined a brain MRI and does not want any further stroke evaluation at this time so I will sign off. 3.Baseline Memory Issues: He said he has seen the [place] [facility] for this complaint in the past but no diagnosis was given. This is a stable issue per patient. Plan: -Pt declined brain MRI or any further neurologic evaluation, I also feel a stroke or TIA seems unlikely at this time -Neurology will sign off, no further neurologic w/u needed at this time Objective: Vital Signs Temp Pulse Resp BP Pulse Ox 36.9 C 78 12 157/83 H 100 10/05/16 08:00 10/05/16 16:50 10/05/16 16:50 10/05/16 15:41 10/05/16 16:50 Laboratory Results 10/05/16 05:20 10/05/16 05:20 10/04/16 10/05/16 10/06/16 05:59 05:59 05:59 Intake Total 1448 Output Total 750 Balance 698 PT 13.9 SEC (12.0-15.0) 10/04/16 21:50 INR 1.08 (0.83-1.16) 10/04/16 21:50 Allergies/Adverse Reactions: No Known Allergies Allergy (Unverified 10/04/16 22:15)
[2016-10-05] MEDS: predniSONE 20 MG TAB PO SCH (18:47)
[2016-10-06] MEDS: hydrALAZINE 20 MG/ML VIAL IVP PRN (00:08)
[2016-10-06] MEDS: IPRATROPIUM/ALBUTEROL 3 ML DEYVIAL IH SCH ×2 (00:27→05:25)
[2016-10-06 05:32] LABS: % IMMATURE GRANULYOCYTES 0.3 % (0.0-1.1); ABSOLUTE IMMATURE GRANULOCYTES 0.03 10^3/uL (0.00-0.10); ADD DIFF? NO; ADD MORPH? NO; ADD SCAN? NO; ATYPICAL LYMPHOCYTE FLAG 0 (0-99); FRAGMENT RBC FLAG 0 (0-99); HEMATOCRIT 43.3 % (40.0-51.0); HEMOGLOBIN 13.4 g/dL (13.7-17.5); LEFT SHIFT FLG 0 (0-99); LIPEMIA HEMOLYSIS FLAG 80 (0-99); MEAN CELL HEMOGLOBIN 31.5 pg (27.9-34.1); MEAN CELL HEMOGLOBIN CONCENTR. 30.9 g/dL (32.4-36.7); MEAN CELL VOLUME 101.6 fL (81.5-99.8); MEAN PLATELET VOLUME 11.5 fL (8.7-11.7); PLATELET CLUMPS FLAG 10 (0-99); PLATELET COUNT 148 10^3/uL (150-400); RED BLOOD CELL COUNT 4.26 10^6/uL (4.40-6.38); RED CELL DISTRIBUTION WIDTH 14.3 % (11.5-15.2)
[2016-10-06 05:57] LABS: ANION GAP 9 mEq/L (8-16); CALCIUM 9.1 mg/dL (8.5-10.4); CARBON DIOXIDE 38 mEq/l (22-31); CHLORIDE 92 mEq/L (97-110); CREATININE 0.8 mg/dL (0.7-1.3); GLOMERULAR FILTRATION RATE > 60; GLUCOSE 108 mg/dL (70-100); POTASSIUM 4.4 mEq/L (3.5-5.2); SODIUM 139 mEq/L (134-144)
[2016-10-06] MEDS ORDERED: HALOPERIDOL LACT 5 MG/ML INJ IVP ONE (06:11)
[2016-10-06] MEDS ORDERED: HALOPERIDOL LACT 5 MG/ML INJ ONE (06:12)
[2016-10-06] MEDS: INSULIN LISPRO 100 UNIT/ML SC SCH ×3 (07:40→16:24)
[2016-10-06] MEDS: LISINOPRIL 5 MG TAB PO SCH (08:37)
[2016-10-06] MEDS: METOPROLOL TARTRATE 25 MG TAB PO SCH ×2 (08:37→20:23)
[2016-10-06] MEDS: predniSONE 20 MG TAB PO SCH ×2 (08:37→18:04)
[2016-10-06] MEDS: AZITHROMYCIN IV 250 MG in D5W 250 ML IV SCH (08:38)
--- NOTE | 2016-10-06 09:55 | HOSPPROG ---
Hospitalist Progress Note Assessment/Plan: #Acute on chronic hypoxic resp failure -ran out of oxygen yesterday. CTA negative. TTE with normal LV function. #Acute encephalopathy: no e/o PE. Mildly elevated trop, but normal wall motion abnormalities. Afebrile. UA with few whites, await culture #Indeterminate trop: no CP. May be demand with acute hypoxemic event. TTE without WMA. #COPD exacerbation: nebs, abx, steroids #Bradycardia: likely due to hypoxemic event #Syncope: due to hypoxemia. 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 No surgery warranted now #Weakness: PT/OT. Lives alone in [facility], will likely need placement #Diet: regular #DVT ppx: Lovenox #Disp: warrants inpt admission with acute hypoxia, syncope. Cont steroids, pulse ox Subjective: more confused overnight. Sats dropped to 70s last night. Denies CP or SOB Objective: Vital Signs Temp Pulse Resp BP Pulse Ox 36.6 C 108 H 16 145/96 H 95 10/06/16 08:00 10/06/16 08:00 10/06/16 08:00 10/06/16 08:00 10/06/16 08:00 Laboratory Results 10/06/16 05:15 10/06/16 05:15 10/05/16 10/06/16 10/07/16 05:59 05:59 05:59 Intake Total 1448 1459 Output Total 750 Balance 698 1459 PT 13.9 SEC (12.0-15.0) 10/04/16 21:50 INR 1.08 (0.83-1.16) 10/04/16 21:50 - Physical Exam Constitutional: chronically ill appearing Eyes: PERRL Ears, Nose, Mouth, Throat: moist mucous membranes, hearing normal Cardiovascular: regular rate and rhythym, no murmur, rub, or gallop Respiratory: no respiratory distress, reduced air movement Gastrointestinal: normoactive bowel sounds, soft, non-tender abdomen Genitourinary: no bladder fullness Skin: warm Musculoskeletal: full muscle strength Neurologic: CN II-XII Intact, other (alert to place only) Psychiatric: encephalopathic ICD10 Worksheet Patient Problems: Problems Problem Status Onset Acute respiratory failure Acute
[2016-10-06] MEDS: BUDESONIDE/FORMOTEROL 160/4.5 60 PUFFS/MDI IH SCH ×2 (10:38→20:24)
[2016-10-06] MEDS: TIOTROPIUM INHALER 18 MCG/DOSE 5 DOSE/MDI IH SCH (10:38)
[2016-10-06] MEDS: ENOXAPARIN 40 MG/0.4 ML SYR SC SCH (11:43)
--- NOTE | 2016-10-06 12:14 | PDINTPN ---
Psychological Operations Progress Note Assessment/Plan: Assessment: Syncope: Likely due to hypoxemia, respiratory failure. No further episodes, no arrhythmias documented in hospital. COPD w/acute exacerbation: He's had increased dyspnea and cough with scant sputum compared to baseline. D-dimer elevated: PE excluded by CT. Bradycardia: Likely due to hypoxemia. 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 No surgery at this point. Plan: Reduce steroid dose. Continue azithro, inhalers. Outpatient follow-up of thoracic aorta ulcer with Dr. Melissa. 10/06/16 12:20 Subjective: Feels OK, breathing unlabored. Objective: Vital Signs Temp Pulse Resp BP Pulse Ox 36.6 C 71 17 128/65 H 99 10/06/16 12:00 10/06/16 12:00 10/06/16 12:00 10/06/16 12:00 10/06/16 12:00 Laboratory Results 10/06/16 05:15 10/06/16 05:15 10/05/16 10/06/16 10/07/16 05:59 05:59 05:59 Intake Total 1448 1459 Output Total 750 Balance 698 1459 PT 13.9 SEC (12.0-15.0) 10/04/16 21:50 INR 1.08 (0.83-1.16) 10/04/16 21:50 CT Chest: No PE. 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 Enlarged PAs. Emphysema. Reviewed images. Physical Exam - Physical Exam General Appearance: alert, no apparent distress EENT: normal ENT inspection Neck: normal inspection Respiratory: decreased breath sounds Cardiac/Chest: regular rate, rhythm, No edema Abdomen: normal bowel sounds, non-tender, soft Skin: normal color, warm/dry Extremities: normal inspection Neuro/Psych: alert, normal mood/affect, oriented x 3 ICD10 Worksheet Patient Problems: Problems Problem Status Onset Acute respiratory failure Acute
[2016-10-06] MEDS: ACYCLOVIR 5% TP SCH ×3 (15:56→22:12)
[2016-10-06] MEDS ORDERED: IPRATROPIUM/ALBUTEROL 4GM MDI IH SCH (16:00)
[2016-10-06] MEDS: ALBUTEROL 200 PUFFS/18 GM MDI IH SCH ×2 (16:12→20:25)
[2016-10-06] MEDS: OMEGA-3 FATTY ACIDS 1,000 MG CAP PO SCH (20:22)
[2016-10-06] MEDS: NITROGLYCERIN 0.4 MG BTL SL PRN (22:11)
[2016-10-07] MEDS: ACYCLOVIR 5% TP SCH ×8 (00:08→21:36)
[2016-10-07] MEDS: hydrALAZINE 20 MG/ML VIAL IVP PRN (00:09)
[2016-10-07] MEDS: NITROGLYCERIN 0.4 MG BTL SL PRN (02:35)
[2016-10-07 05:12] LABS: % IMMATURE GRANULYOCYTES 0.6 % (0.0-1.1); ABSOLUTE IMMATURE GRANULOCYTES 0.06 10^3/uL (0.00-0.10); ADD DIFF? NO; ADD MORPH? NO; ADD SCAN? NO; ATYPICAL LYMPHOCYTE FLAG 0 (0-99); FRAGMENT RBC FLAG 0 (0-99); HEMATOCRIT 44.4 % (40.0-51.0); HEMOGLOBIN 13.6 g/dL (13.7-17.5); LEFT SHIFT FLG 0 (0-99); LIPEMIA HEMOLYSIS FLAG 80 (0-99); MEAN CELL HEMOGLOBIN 31.7 pg (27.9-34.1); MEAN CELL HEMOGLOBIN CONCENTR. 30.6 g/dL (32.4-36.7); MEAN CELL VOLUME 103.5 fL (81.5-99.8); MEAN PLATELET VOLUME 11.2 fL (8.7-11.7); PLATELET CLUMPS FLAG 0 (0-99); PLATELET COUNT 150 10^3/uL (150-400); RED BLOOD CELL COUNT 4.29 10^6/uL (4.40-6.38); RED CELL DISTRIBUTION WIDTH 14.4 % (11.5-15.2)
[2016-10-07 05:30] LABS: CALCIUM 8.7 mg/dL (8.5-10.4); CHLORIDE 90 mEq/L (97-110); CREATININE 0.8 mg/dL (0.7-1.3); GLOMERULAR FILTRATION RATE > 60; GLUCOSE 124 mg/dL (70-100); POTASSIUM 4.4 mEq/L (3.5-5.2); SODIUM 138 mEq/L (134-144)
[2016-10-07 05:36] LABS: ANION GAP 8 mEq/L (8-16); CARBON DIOXIDE 40 mEq/l (22-31)
[2016-10-07] MEDS: ALBUTEROL 200 PUFFS/18 GM MDI IH SCH ×4 (06:04→20:39)
[2016-10-07] MEDS: INSULIN LISPRO 100 UNIT/ML SC SCH ×3 (08:31→18:27)
[2016-10-07] MEDS: METOPROLOL TARTRATE 25 MG TAB PO SCH ×2 (09:15→21:34)
[2016-10-07] MEDS: OMEGA-3 FATTY ACIDS 1,000 MG CAP PO SCH ×2 (09:15→21:33)
[2016-10-07] MEDS: ASPIRIN EC 81 MG TAB PO SCH (09:15)
[2016-10-07] MEDS: predniSONE 20 MG TAB PO SCH ×2 (09:15→18:28)
[2016-10-07] MEDS: LISINOPRIL 5 MG TAB PO SCH (09:15)
[2016-10-07] MEDS: ENOXAPARIN 40 MG/0.4 ML SYR SC SCH (09:15)
[2016-10-07] MEDS: BUDESONIDE/FORMOTEROL 160/4.5 60 PUFFS/MDI IH SCH ×2 (09:28→20:38)
[2016-10-07] MEDS: TIOTROPIUM INHALER 18 MCG/DOSE 5 DOSE/MDI IH SCH (09:29)
[2016-10-07] MEDS: AZITHROMYCIN IV 250 MG in D5W 250 ML IV SCH (09:58)
--- NOTE | 2016-10-07 10:48 | HOSPPROG ---
Hospitalist Progress Note Assessment/Plan: #Acute on chronic hypoxic resp failure -ran out of oxygen. CTA negative. TTE with normal LV function. #Acute encephalopathy: resolved. no e/o PE. Mildly elevated trop, but normal wall motion abnormalities. Afebrile. UA with few whites, negative culture #Indeterminate trop: no CP. May be demand with acute hypoxemic event. TTE without WMA. #COPD exacerbation: nebs, abx, steroids #Bradycardia: likely due to hypoxemic event. resolved #Syncope: due to hypoxemia. 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 No surgery warranted now. FU in 3 months #Weakness: PT/OT. Lives alone in [place], will likely need placement, but he is hesitant #Diet: regular #DVT ppx: Lovenox #Goals: rehab wld be best option now. He wants to speak to Hayley (daughter). I have not been able to contact #Disp: warrants inpt admission with acute hypoxia, syncope. Cont steroids, pulse ox Subjective: "less confused" want to go home Objective: Vital Signs Temp Pulse Resp BP Pulse Ox 37 C 86 18 131/71 H 95 10/07/16 07:47 10/07/16 07:47 10/07/16 07:47 10/07/16 07:47 10/07/16 07:47 Microbiology 10/04/16 16:08 Urine Culture - Final Urine,Catheterized Laboratory Results 10/07/16 05:04 10/07/16 05:04 10/06/16 10/07/16 10/08/16 05:59 05:59 05:59 Intake Total 1459 500 Output Total 825 Balance 1459 -325 PT 13.9 SEC (12.0-15.0) 10/04/16 21:50 INR 1.08 (0.83-1.16) 10/04/16 21:50 - Physical Exam Constitutional: chronically ill appearing Eyes: PERRL Ears, Nose, Mouth, Throat: moist mucous membranes, hearing normal Cardiovascular: regular rate and rhythym, no murmur, rub, or gallop Respiratory: reduced air movement Gastrointestinal: normoactive bowel sounds Musculoskeletal: full muscle strength Neurologic: AAOx3, CN II-XII Intact, other (slow to answer, but does appropriately) Psychiatric: interacting appropriately ICD10 Worksheet Patient Problems: Problems Problem Status Onset Acute respiratory failure Acute
[2016-10-08] MEDS: ACYCLOVIR 5% TP SCH ×9 (00:30→23:10)
[2016-10-08] MEDS: ACETAMINOPHEN 325 MG TAB PO PRN ×2 (00:31→09:09)
[2016-10-08 05:15] LABS: HEMATOCRIT 43.6 % (40.0-51.0); HEMOGLOBIN 12.9 g/dL (13.7-17.5); MEAN CELL HEMOGLOBIN CONCENTR. 29.6 g/dL (32.4-36.7); MEAN CELL VOLUME 104.8 fL (81.5-99.8); RED BLOOD CELL COUNT 4.16 10^6/uL (4.40-6.38); RED CELL DISTRIBUTION WIDTH 14.3 % (11.5-15.2)
[2016-10-08 05:23] LABS: CALCIUM 8.7 mg/dL (8.5-10.4); CHLORIDE 92 mEq/L (97-110); CREATININE 0.8 mg/dL (0.7-1.3); GLOMERULAR FILTRATION RATE > 60; GLUCOSE 115 mg/dL (70-100); SODIUM 138 mEq/L (134-144)
[2016-10-08 05:26] LABS: POTASSIUM 4.9 mEq/L (3.5-5.2)
[2016-10-08 05:30] LABS: ANION GAP 6 mEq/L (8-16); CARBON DIOXIDE 40 mEq/l (22-31)
[2016-10-08] MEDS: ALBUTEROL 200 PUFFS/18 GM MDI IH SCH ×4 (05:44→22:12)
[2016-10-08] MEDS: TIOTROPIUM INHALER 18 MCG/DOSE 5 DOSE/MDI IH SCH (07:15)
[2016-10-08] MEDS: BUDESONIDE/FORMOTEROL 160/4.5 60 PUFFS/MDI IH SCH ×2 (07:16→22:13)
[2016-10-08] MEDS: INSULIN LISPRO 100 UNIT/ML SC SCH ×3 (08:00→17:12)
[2016-10-08] MEDS: ASPIRIN EC 81 MG TAB PO SCH (09:09)
[2016-10-08] MEDS: ENOXAPARIN 40 MG/0.4 ML SYR SC SCH (09:09)
[2016-10-08] MEDS: OMEGA-3 FATTY ACIDS 1,000 MG CAP PO SCH ×2 (09:09→20:28)
[2016-10-08] MEDS: predniSONE 20 MG TAB PO SCH ×2 (09:09→16:57)
[2016-10-08] MEDS: LISINOPRIL 5 MG TAB PO SCH (09:09)
[2016-10-08] MEDS: METOPROLOL TARTRATE 25 MG TAB PO SCH ×2 (09:10→20:28)
[2016-10-08] MEDS: AZITHROMYCIN IV 250 MG in D5W 250 ML IV SCH (10:27)
--- NOTE | 2016-10-08 12:37 | HOSPPROG ---
Hospitalist Progress Note Assessment/Plan: #Acute on chronic hypoxic resp failure secondary to acute exacerbation of COPD - Ran out of O2 at home. Intubated in the field. Extubated in ICU afternoon of admission. on 4 LPM today, which pt states is his home requirement (VS yanni says 8 LPM, but during my exam he is satting in the 90's on 4 LPM). CTA negative. TTE with normal LV function -cont nebs, steroids (day 5), wean O2 as able #Acute encephalopathy: resolved. no e/o PE. Mildly elevated trop, but normal wall motion abnormalities. Afebrile. UA with few whites, negative culture #Indeterminate trop: no CP. May be demand with acute hypoxemic event. TTE without WMA. #Bradycardia: likely due to hypoxemic event. resolved #Syncope: due to hypoxemia. 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 No surgery warranted now. FU outpt in 3 months #Weakness: PT/OT. Lives alone in [facility], will likely need placement, daughter researching SNF options today #Diet: regular #DVT ppx: Lovenox #Goals: planning for SNF rehab in 1-2 days #Disp: cont inpt Subjective: PT states he is doing fine. Denies CP or SOB. Feels close to his baseline. No fevers. Objective: Vital Signs Temp Pulse Resp BP Pulse Ox 36.4 C 54 L 15 118/64 99 10/08/16 11:29 10/08/16 11:29 10/08/16 11:29 10/08/16 11:29 10/08/16 11:29 Laboratory Results 10/08/16 04:14 10/08/16 04:14 10/07/16 10/08/16 10/09/16 05:59 05:59 05:59 Intake Total 500 1660 Output Total 825 635 Balance -325 1025 PT 13.9 SEC (12.0-15.0) 10/04/16 21:50 INR 1.08 (0.83-1.16) 10/04/16 21:50 - Physical Exam Constitutional: no apparent distress Eyes: PERRL Ears, Nose, Mouth, Throat: moist mucous membranes Cardiovascular: regular rate and rhythym Respiratory: reduced air movement Gastrointestinal: normoactive bowel sounds, soft, non-tender abdomen Skin: warm Musculoskeletal: full muscle strength Neurologic: AAOx3 Psychiatric: poor insight ICD10 Worksheet Patient Problems: Problems Problem Status Onset Acute respiratory failure Acute
[2016-10-08] MEDS: hydrALAZINE 20 MG/ML VIAL IVP PRN (16:51)
[2016-10-09] MEDS: ACYCLOVIR 5% TP SCH ×7 (00:18→19:43)
[2016-10-09] MEDS: ALBUTEROL 200 PUFFS/18 GM MDI IH SCH ×4 (05:27→22:23)
[2016-10-09 05:33] LABS: CALCIUM 8.9 mg/dL (8.5-10.4); CHLORIDE 90 mEq/L (97-110); CREATININE 0.8 mg/dL (0.7-1.3); GLOMERULAR FILTRATION RATE > 60; GLUCOSE 95 mg/dL (70-100); POTASSIUM 4.8 mEq/L (3.5-5.2); SODIUM 137 mEq/L (134-144)
[2016-10-09 05:39] LABS: ANION GAP 7 mEq/L (8-16); CARBON DIOXIDE 40 mEq/l (22-31)
[2016-10-09] MEDS: BUDESONIDE/FORMOTEROL 160/4.5 60 PUFFS/MDI IH SCH ×2 (08:05→22:24)
[2016-10-09] MEDS: TIOTROPIUM INHALER 18 MCG/DOSE 5 DOSE/MDI IH SCH (08:06)
[2016-10-09] MEDS: ENOXAPARIN 40 MG/0.4 ML SYR SC SCH (08:26)
[2016-10-09] MEDS: OMEGA-3 FATTY ACIDS 1,000 MG CAP PO SCH ×2 (08:26→20:56)
[2016-10-09] MEDS: LISINOPRIL 5 MG TAB PO SCH (08:27)
[2016-10-09] MEDS: predniSONE 20 MG TAB PO SCH (08:28)
[2016-10-09] MEDS: ACETAMINOPHEN 325 MG TAB PO PRN (08:28)
[2016-10-09] MEDS: ASPIRIN EC 81 MG TAB PO SCH (08:28)
[2016-10-09] MEDS: METOPROLOL TARTRATE 25 MG TAB PO SCH ×2 (08:29→20:54)
[2016-10-09] MEDS: INSULIN LISPRO 100 UNIT/ML SC SCH ×3 (08:35→18:44)
--- NOTE | 2016-10-09 09:16 | HOSPPROG ---
Hospitalist Progress Note Assessment/Plan: #Acute on chronic hypoxic resp failure secondary to acute exacerbation of COPD - Ran out of O2 at home. Received chest compressions and intubated in the field. Extubated in ICU afternoon of admission. O2 requirements up and down from 4-8 LPM. Home requirement is 4 LPM and he has been stable on 4 LPM each time I've seen him x2 d. CTA negative. TTE with normal LV function -cont nebs, on home O2 requirement -he's received 5 day steroid burst, will dc steroids. This event was provoked by his running out of O2 thus I don't see a need for prolonged steroid taper. #Acute encephalopathy: Initial head CT raised question of L MCA CVA. Query if pt has underlying dementia vs some psych hx (daughter reports paranoia and "craziness"). No e/o PE or infection. Mildly elevated trop, but no wall motion abnormalities. Afebrile. UA with few whites, negative culture. -brain MRI today to eval for CVA, re-consult if rules in. He is already on ASA. -behavioral health consult requested for further evaluation of possible psych issues -check b12, folate #Indeterminate trop: no CP. Suspect demand with acute hypoxemic event. TTE without WMA. RN reports ST elevation on tele this am, which is difficult to interpret -repeat EKG and trop reassuring #Bradycardia: likely due to hypoxemic event. resolved #Syncope: due to hypoxemia. 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 No surgery warranted now. FU outpt in 3 months #Weakness: PT/OT. Lives alone in [facility], which does not seem appropriate. He will need placement, daughter researching SNF options today #Diet: regular #DVT ppx: Lovenox #Goals: planning for SNF rehab possibly in 1-2 days #Disp: cont inpt Subjective: Pt is not interacting much. Quiet. Opens eyes and intermittently follows commands. Moves all 4 extremities. Breathing seems to be near baseline. Complains of chest pain daily, had compressions. Objective: Vital Signs Temp Pulse Resp BP Pulse Ox 36.8 C 83 20 133/71 H 98 10/09/16 08:00 10/09/16 08:29 10/09/16 08:09 10/09/16 08:29 10/09/16 08:09 Laboratory Results 10/08/16 04:14 10/09/16 04:16 10/08/16 10/09/16 10/10/16 05:59 05:59 05:59 Intake Total 1660 602.5 Output Total 635 725 Balance 1025 -122.5 PT 13.9 SEC (12.0-15.0) 10/04/16 21:50 INR 1.08 (0.83-1.16) 10/04/16 21:50 - Physical Exam Cardiovascular: regular rate and rhythym Respiratory: no respiratory distress Gastrointestinal: normoactive bowel sounds Skin: warm Musculoskeletal: full muscle strength Neurologic: other (no facial droop, pronator drift negative ) Psychiatric: encephalopathic ICD10 Worksheet Patient Problems: Problems Problem Status Onset Acute respiratory failure Acute
--- NOTE | 2016-10-09 09:37 | CPEKG ---
Heart Rate: 58 RR Interval: 1034 P-R Interval: 192 QRSD Interval: 184 QT Interval: 452 QTC Interval: 445 P Home: -18 QRS Home: -74 T Wave Home: 19 EKG Severity - ABNORMAL ECG - EKG Impression: SINUS RHYTHM EKG Impression: RBBB AND LAFB Electronically Signed By: Aaron Brooks 09-Oct-2016 10:55:26
[2016-10-09] MEDS: AZITHROMYCIN IV 250 MG in D5W 250 ML IV SCH (10:46)
[2016-10-09 12:15] LABS: FOLATE SERUM 4.05 ng/mL (2.80 - >20.00)
[2016-10-09] MEDS ORDERED: MAGNESIUM HYDROXIDE 30 ML UDCUP PO PRN (16:04)
[2016-10-09] MEDS ORDERED: POLYETHYLENE GLYCOL 3350 17 GM PKT PO PRN (16:04)
[2016-10-09] MEDS ORDERED: LACTULOSE 20 GM/30 ML UDCUP PO PRN (16:04)
[2016-10-09] MEDS ORDERED: BISACODYL 10 MG SUPP PR PRN (16:04)
[2016-10-09] MEDS ORDERED: NS 1,000 ML IV ONE (16:47)
[2016-10-09] MEDS: SENNOSIDES/DOCUSATE SODIUM TAB PO SCH (20:55)
[2016-10-10 05:16] LABS: CALCIUM 8.9 mg/dL (8.5-10.4); CHLORIDE 90 mEq/L (97-110); CREATININE 0.9 mg/dL (0.7-1.3); GLOMERULAR FILTRATION RATE > 60; GLUCOSE 111 mg/dL (70-100); POTASSIUM 4.7 mEq/L (3.5-5.2); SODIUM 138 mEq/L (134-144)
[2016-10-10 05:36] LABS: ANION GAP 3 mEq/L (8-16)
[2016-10-10 05:38] LABS: CARBON DIOXIDE 45 mEq/l (22-31)
[2016-10-10] MEDS: ALBUTEROL 200 PUFFS/18 GM MDI IH SCH ×4 (05:55→20:53)
[2016-10-10] MEDS: METOPROLOL TARTRATE 25 MG TAB PO SCH ×2 (08:51→22:02)
[2016-10-10] MEDS: SENNOSIDES/DOCUSATE SODIUM TAB PO SCH ×2 (08:51→22:02)
[2016-10-10] MEDS: LISINOPRIL 5 MG TAB PO SCH (08:51)
[2016-10-10] MEDS: ASPIRIN EC 81 MG TAB PO SCH (08:51)
[2016-10-10] MEDS: ENOXAPARIN 40 MG/0.4 ML SYR SC SCH (08:52)
[2016-10-10] MEDS: AZITHROMYCIN IV 250 MG in D5W 250 ML IV SCH (08:56)
[2016-10-10] MEDS: BUDESONIDE/FORMOTEROL 160/4.5 60 PUFFS/MDI IH SCH ×2 (10:24→20:52)
[2016-10-10] MEDS: TIOTROPIUM INHALER 18 MCG/DOSE 5 DOSE/MDI IH SCH (10:24)
[2016-10-10] MEDS: ACYCLOVIR 5% TP SCH ×6 (10:26→23:55)
[2016-10-10] MEDS: INSULIN LISPRO 100 UNIT/ML SC SCH ×3 (10:28→18:01)
[2016-10-10] MEDS: OMEGA-3 FATTY ACIDS 1,000 MG CAP PO SCH ×2 (10:36→22:02)
--- NOTE | 2016-10-10 12:21 | HOSPPROG ---
Hospitalist Progress Note Assessment/Plan: Hospitalist Progress Note Assessment/Plan: *81y male with hypoxemia, first encounter, chart reviewed. #Acute on chronic hypoxic resp failure secondary to acute exacerbation of COPD - -Ran out of O2 at home. Received chest compressions and intubated in the field. Extubated in ICU afternoon of admission. -O2 requirements up and down from 4-6 LPM. Home requirement is 4 LPM and he has been stable on 4 LPM -CTA negative. TTE with normal LV function -cont nebs, on home O2 requirement -he received 5 day steroid burst -at baseline but conts to take off his O2 #Acute encephalopathy: -Initial head CT raised question of L MCA CVA. Query if pt has underlying dementia vs some psych hx (daughter reports paranoia and "craziness"). - No e/o PE or infection. -brain MRI done, Dr Barbosa to comment. He is already on ASA. -behavioral health consult requested for further evaluation of possible psych issues -labs stable #Indeterminate trop: - no CP. Suspect demand with acute hypoxemic event. -TTE without WMA. -repeat EKG and trop stable #Bradycardia: likely due to hypoxemic event. resolved #Syncope: due to hypoxemia. 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 No surgery warranted now. FU outpt in 3 months #Weakness: PT/OT. Lives alone in [facility], which does not seem appropriate. He will need placement, [facility] when able #Diet: regular #DVT ppx: Lovenox #Goals: planning for SNF rehab possibly in 1-2 days reviewed with CM #Disp: cont inpt Subjective: Up in chair. Didn't sleep well. Haivng generalized pain but unalbe to identify. Objective: Vital Signs Temp Pulse Resp BP Pulse Ox 36.6 C 65 18 119/64 98 10/10/16 11:41 10/10/16 11:41 10/10/16 11:41 10/10/16 11:41 10/10/16 11:41 Microbiology 10/04/16 16:46 Blood Culture - Final Blood 10/04/16 16:20 Blood Culture - Final Blood Laboratory Results 10/08/16 04:14 10/10/16 04:18 10/09/16 10/10/16 10/11/16 05:59 05:59 05:59 Intake Total 602.5 650 Output Total 725 175 50 Balance -122.5 475 -50 PT 13.9 SEC (12.0-15.0) 10/04/16 21:50 INR 1.08 (0.83-1.16) 10/04/16 21:50 - Physical Exam Constitutional: no apparent distress, appears nourished, chronically ill appearing Eyes: PERRL, anicteric sclera, EOMI Ears, Nose, Mouth, Throat: moist mucous membranes, hearing normal, ears appear normal Cardiovascular: No JVD, No tachycardia, No edema Respiratory: no respiratory distress, no rales or rhonchi, reduced air movement Gastrointestinal: No tenderness, No ascites, No guarding Skin: warm, normal color, No erythema Musculoskeletal: normal joint ROM, no joint effusions, generalized weakness Psychiatric: not anxious, poor insight, poor judgement, poor memory, No thought process linear ICD10 Worksheet Patient Problems: Problems Problem Status Onset Acute respiratory failure Acute
[2016-10-10] MEDS: NITROGLYCERIN 0.4 MG BTL SL PRN ×3 (14:20→15:22)
--- NOTE | 2016-10-10 14:30 | CPEKG ---
Heart Rate: 66 RR Interval: 909 P-R Interval: 188 QRSD Interval: 180 QT Interval: 444 QTC Interval: 466 P [place]: 30 QRS [place]: -84 T Wave [place]: 43 EKG Severity - ABNORMAL ECG - EKG Impression: SINUS RHYTHM EKG Impression: RBBB AND LAFB Electronically Signed By: Lien Fink 11-Oct-2016 02:00:25
--- NOTE | 2016-10-10 15:01 | NEUROPROG ---
Assessment: [id number] CC: F/U for Memory Disturbance Narrative Summary: This male patient was initially seen 10/05/16. He was admitted 10/04/16 to [facility] after he was witnessed to have loss of awareness and possible left facial droop by bystanders. EMS arrived and found him to have a pulse but poor respiration. He became unresponsive in the ER so was intubated but then could answer questions by nodding after intubation. He was given therapy for agitation though so again was not responding to questions. Head CT shows possible dense left MCA but was otherwise normal and head/neck CTA unremarkable. He was intubated overnight but this morning he improved dramatically and was extubated. He had no neurologic deficits other than baseline short term memory deficits which his daughter told his nurse was a long-standing problem. He denied focal weakness,sensory changes, or vision issues. It appears his baseline COPD may have had an acute exacerbation causing respiratory arrest to explain his presentation. He reported having seen [facility] in the past so it appeared he likely had some mild underlying memory issues. HPI: F/U on 10/10/16. He denied any new changes. He continued to have memory issues and could easily be confused with episodes of pulling off his O2 and getting hypoxic. A brain MRI was obtained which showed severe chronic microvascular disease but no acute stroke. PMHx: COPD on O2, baseline memory problem SHx: Speaks Angolan FHx: daughter alive Labs: 10/05/16- CBC Plt 111L, CMP CO2 35H GLuc 142H Ca 8.3L, Trop 0.109, 0.099 10/09/16- B12 260 Rads: 10/04/16- Head CT w/o con: possible dense left MCA vs artifact, periventricular and deep hemispheric white matter changes likely from chronic microvascular disease, generalized atrophy (I personally visualized the images on 10/05/16) 10/04/16- CTA head/neck: < 50% stenosis in carotid arteries, no flow limiting stenosis,no thrombus seen in the brain 10/04/16- TTE: no thrombus seen 10/05/16- 24 hour telemetry: no afib seen 10/09/16- Brain MRI w/o con: 1. Mild cerebral atrophy. 2. No acute infarct, hemorrhage, hydrocephalus, mass effect, or herniation. 3. Multiple nonspecific hyperintense T2/FLAIR signal abnormalities in the white matter of bilateral cerebral hemispheres. Differential diagnosis includes severe microvascular ischemic gliosis, versus less likely post-infectious/post- inflammatory sequela. 4. No evidence of left middle cerebral artery infarct. 5. Nonspecific fluid in the right mastoid air cells. Assessment: 1.Acute on Chronic Respiratory Distress: It appears his baseline COPD requiring O2 had an exacerbation leading to respiratory arrest. 2.Syncope with respiratory arrest and possible left facial droop: It was unclear if he had any neurologic deficits when he passed out prior to admission but he currently has no neurologic deficits (other than baseline memory issues) and his head CT, CTA head/neck, TTE, and telemetry have not indicated any increased stroke risk. His brain MRI showed on stroke. 3.Baseline Memory Issues: He likely has dementia from age, significant lung disease with hypoxia, and possibly a primary dementia or vascular dementia as well. He said he has seen the [facility] for this complaint in the past but no diagnosis was given. His current MRI 10/08/16 showed severe white matter disease so he may be at risk for vascular dementia. He will require excellent risk factor modification and optimization of his respiratory problems. Recommend ensuring normal TSH/RPR. Plan: -Labs: RPR, TSH -Blood pressure < 140/90 - H1AC < 7.0 by PCM - Good cholesterol control per PCM - F/U in neurology clinic 4-6 weeks after discharge to monitor memory status -Neurology will sign off, no further neurologic w/u needed at this time 35 min spent with patient, majority of time spent counseling on his memory issues, likely causes, and treatment options. Objective: Vital Signs Temp Pulse Resp BP Pulse Ox 36.6 C 63 19 114/62 100 10/10/16 11:41 10/10/16 14:34 10/10/16 14:10 10/10/16 14:34 10/10/16 14:10 Microbiology 10/04/16 16:46 Blood Culture - Final Blood 10/04/16 16:20 Blood Culture - Final Blood Laboratory Results 10/08/16 04:14 10/10/16 04:18 10/09/16 10/10/16 10/11/16 05:59 05:59 05:59 Intake Total 602.5 650 Output Total 725 175 150 Balance -122.5 475 -150 PT 13.9 SEC (12.0-15.0) 10/04/16 21:50 INR 1.08 (0.83-1.16) 10/04/16 21:50 Allergies/Adverse Reactions: No Known Allergies Allergy (Unverified 10/04/16 22:15)
[2016-10-10 15:05] LABS: TROPONIN I 0.065 ng/mL (0-0.034)
[2016-10-10 15:08] LABS: CREATINE KINASE-MB FRACTION 3.32 ng/mL (0-3.19)
[2016-10-10 15:09] LABS: CK-MB INTERPRETATION POSITIVE (NEGATIVE)
[2016-10-10] MEDS ORDERED: MAG HYDROX/AL HYDROX/SIMETH 30 ML UDCUP PO ONE (15:27)
[2016-10-10] MEDS ORDERED: LIDOCAINE 2% VISCOUS 15 ML UDCUP PO ONE (15:27)
[2016-10-10] MEDS ORDERED: HYOSCYAMINE SULFATE 0.125 MG TAB PO ONE (15:27)
[2016-10-11] MEDS: ACYCLOVIR 5% TP SCH ×7 (02:53→22:42)
[2016-10-11] MEDS: ALBUTEROL 200 PUFFS/18 GM MDI IH SCH ×4 (06:27→20:55)
[2016-10-11] MEDS: TIOTROPIUM INHALER 18 MCG/DOSE 5 DOSE/MDI IH SCH (08:12)
[2016-10-11] MEDS: BUDESONIDE/FORMOTEROL 160/4.5 60 PUFFS/MDI IH SCH ×2 (08:12→20:55)
[2016-10-11] MEDS: OMEGA-3 FATTY ACIDS 1,000 MG CAP PO SCH ×2 (08:30→21:30)
[2016-10-11] MEDS: INSULIN LISPRO 100 UNIT/ML SC SCH ×3 (08:30→17:19)
[2016-10-11] MEDS: LISINOPRIL 5 MG TAB PO SCH (08:31)
[2016-10-11] MEDS: METOPROLOL TARTRATE 25 MG TAB PO SCH ×2 (08:31→21:31)
[2016-10-11] MEDS: ASPIRIN EC 81 MG TAB PO SCH (08:31)
[2016-10-11] MEDS: SENNOSIDES/DOCUSATE SODIUM TAB PO SCH ×2 (08:31→21:30)
[2016-10-11] MEDS: ENOXAPARIN 40 MG/0.4 ML SYR SC SCH (08:32)
[2016-10-11] MEDS: AZITHROMYCIN IV 250 MG in D5W 250 ML IV SCH (09:10)
--- NOTE | 2016-10-11 12:27 | HOSPPROG ---
Hospitalist Progress Note Assessment/Plan: Hospitalist Progress Note Assessment/Plan: *81y male with hypoxemia #Acute on chronic hypoxic resp failure secondary to acute exacerbation of COPD - -Ran out of O2 at home. was at [employer]. Received chest compressions and intubated in the field. Extubated in ICU afternoon of admission. -O2 requirements 4LPM. Home requirement is 4 LPM and he has been stable on 4 LPM -CTA negative. TTE with normal LV function -cont nebs, on home O2 requirement -he received 5 day steroid burst -at baseline but conts to take off his O2 #Acute encephalopathy: -Initial head CT raised question of L MCA CVA. 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 He is already on ASA. -labs stable -this is likely pt new baseline #Hx of ETOH per family -quit 20years ago per family -likely residual mentation changes related to hx of ETOH #HX of THC -elevated at admission plus benzo #Indeterminate trop: - no CP. Suspect demand with acute hypoxemic event. -TTE without WMA. -repeat EKG and trop stable -no further workup warranted #Penial sore -unclear etiol -cultured -no treatment currently -hx of zoster #Bradycardia: likely due to hypoxemic event. resolved #Syncope: due to hypoxemia. 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 No surgery warranted now. FU outpt in 3 months #Weakness: PT/OT. Lives alone in [facility], which does not seem appropriate. He will need placement, [facility] care when able #Diet: regular #DVT ppx: Lovenox #Goals: planning for SNF rehab possibly in 1-2 days reviewed with CM #Disp: cont inpt Subjective: Up in chair. No verbal repsonse today. Eating breakfast. Objective: Vital Signs Temp Pulse Resp BP Pulse Ox 37 C 62 18 123/61 H 98 10/11/16 12:00 10/11/16 12:00 10/11/16 12:00 10/11/16 12:00 10/11/16 12:00 Laboratory Results 10/08/16 04:14 10/10/16 04:18 10/10/16 10/11/16 10/12/16 05:59 05:59 05:59 Intake Total 650 450 Output Total 175 525 175 Balance 475 -75 -175 PT 13.9 SEC (12.0-15.0) 10/04/16 21:50 INR 1.08 (0.83-1.16) 10/04/16 21:50 - Physical Exam Constitutional: no apparent distress, appears nourished, not in pain Eyes: PERRL, anicteric sclera, EOMI Ears, Nose, Mouth, Throat: moist mucous membranes, hearing normal, ears appear normal Cardiovascular: No JVD, No tachycardia, No edema Respiratory: no respiratory distress, clear to auscultation, reduced air movement Gastrointestinal: normoactive bowel sounds, No tenderness, No ascites Skin: warm, normal color, induration (on penis), No erythema Musculoskeletal: normal joint ROM, no joint effusions, generalized weakness Neurologic: No AAOx3 Psychiatric: encephalopathic, poor insight, poor judgement, poor memory, No interacting appropriately, No thought process linear ICD10 Worksheet Patient Problems: Problems Problem Status Onset Acute respiratory failure Acute
[2016-10-11 13:43] LABS: COLOR YELLOW; LEUKOCYTE ESTERASE,URINE NEGATIVE (NEGATIVE); NITRITE,URINE NEGATIVE (NEGATIVE)
[2016-10-11 13:45] LABS: MUCUS TRACE /lpf (NONE-1+)
--- NOTE | 2016-10-11 17:11 | GCON ---
[f rep st] CONSULTATION INFECTIOUS DISEASE CONSULTATION REFERRING PHYSICIAN: Marquita Loredo NP REASON FOR REFERRAL: Delirium, unclear if infectious, penile lesion. HISTORY OF PRESENT ILLNESS: The patient is an 81-year-old male, who was brought into the emergency room unresponsive after collapsing in a [employer] parking lot. The patient was delivered to the [facility] room, and was worked up for cardiac source without conclusion. It was concluded that the gallo ent ran out of oxygen at home, and suffered from an acute on chronic hypoxic respiratory failure whi le out shopping. The patient continued to have episodes of hypoxemia during his stay here. He show ed numerous periods of confusion and inability to remember broad details from his past. We are cons ulted secondary to ulcerations on the shaft of his penis, and concerns about delirium possibly being secondary to herpes simplex viral infection in the central nervous system. PAST MEDICAL HISTORY: Difficult to obtain from the patient. Presumed chronic obstructive pulmonary disease. PAST SURGICAL HISTORY: The patient is unaware. ANTIBIOTICS: None currently. ALLERGIES: No known drug allergies. SOCIAL HISTORY: The patient states that he lives in [place], and has lived there for 45 years. The patient names his 2 children Fortunato and Hayley. He is unaware of the names of his grandchildren, a lthough he says he has them. FAMILY HISTORY: Unable to obtain. REVIEW OF SYSTEMS: The patient denies any complaint. PHYSICAL EXAMINATION: VITAL SIGNS: Temp maximum is 37.5, temp current is 36.8, heart rate is 86, r espiratory rate is 18, blood pressure is 142/69. GENERAL: The patient is a well formed, well-mary shed elderly male, in no acute distress. He is not toxic in appearance. He is alert and oriented x 3. He is in a pleasant demeanor. HEENT: Normocephalic for age, atraumatic. No scleral icterus. No oral lesion. No drainage from the nares. Eyes, lids and conjunctivae are within normal limits. Pupils are equal and round bilaterally. NECK: Supple. No meningismus. HEART: Regular rate and rhythm. No murmur, rub, or gallop noted. LUNGS: Clear to auscultation bilaterally with good effor t. ABDOMEN: Soft, nontender. No masses. SKIN: Warm and dry to the touch. No rash or lesion. GENITALS: The patient has normal male anatomy. He has some circumferential ulceration under the co chandrika when the foreskin is retracted. Not much significant surrounding erythema. No purulent draina ge. MUSCULOSKELETAL: No other muscle belly tenderness is noted. No joint line, effusion, or arthr itis is seen. NEURO: Cranial nerves 2-12 seem to be intact. Peripheral sensation seems intact in extremities. LABORATORY DATA: The patient has a CBC dated 10/08/2016, shows a white blood cell count of 6.8, hem oglobin of 12.9, hematocrit of 43.6, platelet count of 141. Serum chemistries on 10/10 show sodium 138, potassium 4.7, chloride of 90, bicarbonate of 45, BUN of 36, creatinine 0.9. ASSESSMENT: Dementia, unclear etiology, whether it be senile dementia or Wernicke-Korsakoff variant . The patient does have elevated mean corpuscular volume, but no active low folate or B12 count. B y previous notes, conversations with his daughter may have indicated an alcohol habit in the past. I do not think that the patient has an acute infection that is the cause of his waxing and waning me ntal status. The ulcers on his penis do not look herpetic. We will send a swab regardless to deter mine. At this point, would hold off any empiric antibiotics, as I am not clear what we would be michaela ating. We will follow his results and clinical course over the next few days. PLAN: 1. No empiric antibiotics. 2. Follow up on culture data and clinical course. /[id number]/MODL
[2016-10-11] MEDS: ACETAMINOPHEN 325 MG TAB PO PRN (21:38)
[2016-10-12] MEDS: ACYCLOVIR 5% TP SCH ×4 (02:05→11:29)
[2016-10-12] MEDS: ALBUTEROL 200 PUFFS/18 GM MDI IH SCH ×4 (05:20→23:34)
[2016-10-12] MEDS: ENOXAPARIN 40 MG/0.4 ML SYR SC SCH (10:02)
[2016-10-12] MEDS: LISINOPRIL 5 MG TAB PO SCH (10:03)
[2016-10-12] MEDS: METOPROLOL TARTRATE 25 MG TAB PO SCH ×2 (10:06→21:15)
[2016-10-12] MEDS: INSULIN LISPRO 100 UNIT/ML SC SCH ×3 (10:20→18:01)
[2016-10-12 10:28] LABS: BICARBONATE 51 mEq/L (22-26); MEASURED OXYGEN SATURATION 80 % (92-95); PO2 55 mmHg (65-75)
--- NOTE | 2016-10-12 10:31 | HOSPPROG ---
Hospitalist Progress Note Assessment/Plan: Patient is an 81 y/o male who was found down at [employer] parking lot. Bystanders initiated CPR. EMs noted he had no pulse, not breathing. Intubated. He then had purposeful movements and followed commands. Today I was called by the RN because patient was diaphoretic and non-responsive. Ordered a stat ABG/suspect he is retaining Co2. 12 lead EKG ordered, chest xray ordered. Spoke with patient's daughter, MACEY Michael. She doesn't want him intubated or to have CPR. >40 minutes face to face caring and making decisions with the family. *unresponsiveness not responding to sternal rub glucose 167 clammy, abg stat, bipap ordered spoke w patients Fernanda CHOUDHURY, she wants no intubation, no CPR she is going to fly out to see him today *acute on chronic hypoxemic respirator failure/ COPD CTA negative for a PE echo stable pateint ran out of O2 at home *acute encephalopathy initial head CT showed ? CVA, but neurology noted it as artifact MRI showed nothing acute ? Wernicke *indeterminate trops likely demand ischemia *Penile sore evaluated by Id jody Bush *hx of ETOH use quit 20 years ago *bradycardia none on monitor *syncope *thoracic aortic ulcer no further w/u *plan; bipap Subjective: Basil is nonrepsonsive. Objective: Vital Signs Temp Pulse Resp BP Pulse Ox 36.7 C 91 18 123/63 H 88 L 10/12/16 07:32 10/12/16 07:32 10/12/16 07:32 10/12/16 07:32 10/12/16 07:32 Microbiology 10/11/16 10:50 Gram Stain - Final Penis - Swab Laboratory Results 10/08/16 04:14 10/10/16 04:18 10/11/16 10/12/16 10/13/16 05:59 05:59 05:59 Intake Total 450 550 Output Total 525 525 Balance -75 25 PT 13.9 SEC (12.0-15.0) 10/04/16 21:50 INR 1.08 (0.83-1.16) 10/04/16 21:50 - Physical Exam Constitutional: chronically ill appearing Cardiovascular: regular rate and rhythym Respiratory: other (use of accessory muscle to breathe), No no respiratory distress Skin: other (diaphoretic) Neurologic: other (nonresponsive) ICD10 Worksheet Patient Problems: Problems Problem Status Onset Acute respiratory failure Acute Chronic Disease Mgmt/Transitional Care Acute
[2016-10-12 10:34] LABS: PCO2 > 125 mmHg (34-38)
[2016-10-12] MEDS: BUDESONIDE/FORMOTEROL 160/4.5 60 PUFFS/MDI IH SCH ×2 (10:34→23:35)
[2016-10-12 10:35] LABS: TCO2 57 mEq/L (23-27)
[2016-10-12] MEDS: TIOTROPIUM INHALER 18 MCG/DOSE 5 DOSE/MDI IH SCH (10:36)
[2016-10-12] MEDS: SENNOSIDES/DOCUSATE SODIUM TAB PO SCH ×2 (10:46→21:16)
[2016-10-12] MEDS: ASPIRIN EC 81 MG TAB PO SCH (10:46)
[2016-10-12] MEDS: OMEGA-3 FATTY ACIDS 1,000 MG CAP PO SCH ×2 (10:46→21:16)
[2016-10-12] MEDS: AZITHROMYCIN IV 250 MG in D5W 250 ML IV SCH (11:28)
--- NOTE | 2016-10-12 11:39 | CPEKG ---
Heart Rate: 80 RR Interval: 750 P-R Interval: 212 QRSD Interval: 178 QT Interval: 460 QTC Interval: 531 P [place]: 59 QRS [place]: -93 T Wave [place]: 45 EKG Severity - ABNORMAL ECG - EKG Impression: SINUS RHYTHM WITH FAVB EKG Impression: VENTRICULAR PREMATURE COMPLEXES EKG Impression: PROBABLE LEFT ATRIAL ABNORMALITY EKG Impression: RBBB AND LAFB Electronically Signed By: Alexander Murphy 13-Oct-2016 16:29:20
[2016-10-12] MEDS: ERTAPENEM 1 GM in NS 100 ML IV SCH (13:38)
[2016-10-12] MEDS ORDERED: NS 1,000 ML IV SCH (14:45)
[2016-10-12 15:00] LABS: BASE EXCESS 12.4 mEq/L (-2.5-2.5); BICARBONATE 49 mEq/L (22-26); MEASURED OXYGEN SATURATION 99 % (92-95); PO2 136 mmHg (65-75)
[2016-10-12 15:10] LABS: BIPAP YES; EXP PRESSURE 8; INSP PRESSURE 18; O2 CONCENTRATIION 100 % (0-100); P/F RATIO 136 RATIO
[2016-10-12 15:18] LABS: TCO2 55 mEq/L (23-27)
[2016-10-12 15:19] LABS: PCO2 > 125 mmHg (34-38)
--- NOTE | 2016-10-12 15:21 | PCMIDPN ---
Assessment/Plan: Assessment: Delirium /dementia. In patient with underlying COPD. Patient was quite obtunded this morning upon visit. I believe patient got hypercarbic overnight sometime. No clear infectious etiology to this. We will follow his clinical course. Ertapenem started by hospitalist for possible aspiration event. Plan: 1. ertapenem 1 g IV Q 24 hours. Short course if needed. Subjective: Patient is nonresponsive in his bed. He is breathing on his own. He does have a pulse. He is not arousable. Objective: No antibiotics Vital Signs Temp Pulse Resp BP Pulse Ox 36.7 C 91 18 123/63 H 92 10/12/16 07:32 10/12/16 07:32 10/12/16 10:30 10/12/16 07:32 10/12/16 10:30 Microbiology 10/11/16 10:50 Gram Stain - Final Penis - Swab Laboratory Results 10/08/16 04:14 10/10/16 04:18 10/11/16 10/12/16 10/13/16 05:59 05:59 05:59 Intake Total 450 550 350 Output Total 525 525 Balance -75 25 350 - Physical Exam General Appearance: WD/WN, obtunded, No alert Respiratory: lungs clear, normal breath sounds, No stridor, No wheezing Cardiac/Chest: regular rate, rhythm, No tachycardia Skin: normal color, warm/dry, No rash Neuro/Psych: No alert ICD10 Worksheet Patient Problems: Problems Problem Status Onset Acute respiratory failure Acute Chronic Disease Mgmt/Transitional Care Acute
[2016-10-13 05:46] VITALS: O2SAT 94
[2016-10-13] MEDS: ALBUTEROL 200 PUFFS/18 GM MDI IH SCH (05:47)
[2016-10-13 07:42] VITALS: BP 96/51; PULSE 78; RESP 18; TEMP 97.8
[2016-10-13] MEDS: ENOXAPARIN 40 MG/0.4 ML SYR SC SCH (08:09)
[2016-10-13] MEDS: INSULIN LISPRO 100 UNIT/ML SC SCH (08:13)
[2016-10-13] MEDS: ASPIRIN EC 81 MG TAB PO SCH (08:13)
[2016-10-13] MEDS: OMEGA-3 FATTY ACIDS 1,000 MG CAP PO SCH (08:14)
[2016-10-13] MEDS: SENNOSIDES/DOCUSATE SODIUM TAB PO SCH (08:14)
[2016-10-13] MEDS: LISINOPRIL 5 MG TAB PO SCH (08:14)
[2016-10-13] MEDS: METOPROLOL TARTRATE 25 MG TAB PO SCH (08:14)
[2016-10-13] MEDS: ERTAPENEM 1 GM in NS 100 ML IV SCH (08:21)
[2016-10-13] MEDS ORDERED: LORazepam 2 MG/ML INJ IVP PRN (08:25)
[2016-10-13] MEDS ORDERED: ONDANSETRON 4 MG/2 ML VIAL IVP PRN (08:25)
--- NOTE | 2016-10-13 08:28 | HOSPPROG ---
Hospitalist Progress Note Assessment/Plan: Patient is an 81 y/o male who was found down at [employer] parking lot. Bystanders initiated CPR. EMs noted he had no pulse, not breathing. Intubated. He then had purposeful movements and followed commands. Today patient continues to be non responsive/ his daughter, Fernanda, is here. She wishes to stop all support and place on comfort measures. *unresponsiveness due to high Co2 levels dc bibap comfort measures *acute on chronic hypoxemic respirator failure/ COPD CTA negative for a PE echo stable patient ran out of O2 at home *acute encephalopathy initial head CT showed ? CVA, but neurology noted it as artifact MRI showed nothing acute *indeterminate trops likely demand ischemia *Penile sore evaluated by Id appreciate Dr Bush *hx of ETOH use quit 20 years ago *bradycardia none on monitor *syncope *thoracic aortic ulcer no further w/u *plan; comfort measures only/ after bibap was dc/ patient at 8:47/ stopped breathing, had no pulse. Objective: Vital Signs Temp Pulse Resp BP Pulse Ox 36.6 C 78 18 96/51 L 94 10/13/16 07:39 10/13/16 07:39 10/13/16 07:39 10/13/16 07:39 10/13/16 05:43 Microbiology 10/11/16 10:50 Gram Stain - Final Penis - Swab Laboratory Results 10/08/16 04:14 10/10/16 04:18 10/12/16 10/13/16 10/14/16 05:59 05:59 05:59 Intake Total 550 950 Output Total 525 400 Balance 25 550 PT 13.9 SEC (12.0-15.0) 10/04/16 21:50 INR 1.08 (0.83-1.16) 10/04/16 21:50 ICD10 Worksheet Patient Problems: Problems Problem Status Onset Acute respiratory failure Acute Chronic Disease Mgmt/Transitional Care Acute
--- NOTE | 2016-10-13 14:32 | GDS ---
[f rep st] DISCHARGE SUMMARY DISCHARGE DIAGNOSES: 1. Acute on chronic hypoxemic respiratory failure due to COPD with elevated carbon dioxide levels. 2. Acute encephalopathy. 3. Indeterminate troponins. 4. Penile sore. 5. History of alcohol use. 6. Bradycardia. 7. Syncope. 8. Thoracic aortic ulcer. HOSPITAL COURSE: Briefly, the patient is an 81-year-old male, who was admitted on November 03, after being found down in the [employer] parking lot. He was slumped over and there was a question if he had a facial droop by bystanders. He did not have a pulse and was not breathing. At that time, CPR was initiated. EMS noted that he did have a pulse. He was bradycardic and then tachycardic, his respirations was poor. He was bag masked in route to the ER. He was intubated for continued respiratory distress on arrival. On arrival to the ER, he was completely unresponsive. No purposeful movements. After intubation, he regained purposeful movement, and was following commands, and able to respond to questions by nodding. He was placed in the intensive care unit. Later on that evening, he became unresponsive again, and was diaphoretic. There was a concern if he could have an ID versus a pulmonary emboli. Multiple procedures were done. 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 He was evaluated by the neurologist to rule out that he had any type of stroke. The head CT showed a possible left MCA versus artifact. An MRI was then subsequently performed, which did not show a stroke. He slowly improved in the ICU. An echocardiogram was performed, which showed normal wall motion. He had an indeterminate troponin level, most likely due to demand ischemia. He had no wall motion abnormality. He was transferred to the floor and was confused. Infectious disease consult was obtained. It was unclear the etiology of his delirium. It was unclear if he had senile dementia or Wernicke-Korsakoff variant. During my evaluation, on 10/12/2016, the patient was obtunded and nonresponsive. At that time, an arterial blood gas was checked, it showed a high level of carbon dioxide. He was placed on BiPAP. The glucose level was checked which was stable. A chest x-ray was performed, which was concerning for an aspiration. He was treated in the interim with ertapenem. After further discussion with the family, the patient's daughter, did not want any further treatment. Today, the BiPAP was discontinued, and the patient quickly afterwards. His time of was at 8:47 a.m. He of respiratory failure secondary to COPD. TIME SPENT WITH PATIENT: Greater than 30 minutes coordinating his care. /[id number]/MODL MTDD
[2016-10-13 19:47] LABS: SPECIMEN SOURCE PENIS
== END 2016-10-13 10:13 | disposition expired | DRG 189 ==
LOC: EDUNIT# → F2N 15:52 → F3N 10-07 22:57
PROVIDERS: ADMIT Internal Medicine; ATTEND Internal Medicine
PROC: 0BH17EZ Insertion of Endotracheal Airway into Trachea, Via Natural or Artificial Opening (ICD-10-PCS; principal; 2016-10-04)
DX: J96.21 Acute and chronic respiratory failure with hypoxia (principal); J44.1 Chronic obstructive pulmonary disease with (acute) exacerbation; Z51.5 Encounter for palliative care; F03.90 Unspecified dementia, unspecified severity, without behavioral disturbance, psychotic disturbance, mood disturbance, and anxiety; I71.2 Thoracic aortic aneurysm, without rupture; I10 Essential (primary) hypertension; R00.1 Bradycardia, unspecified; R55 Syncope and collapse; N48.89 Other specified disorders of penis
CPT/HCPCS: 80307; 82607-90; 82947-QW; 85520-90; 87529-90; 92507-GN; 92523-GN; 97110-GP; 97116-GP; 97161-GP; 97165-GO; 97530-GO; 97530-GP; 97535-GO; G0480; G8978-GP-CI; G8979-GP-CJ; G8987-GO-CJ; G8988-GO-CI; G9165-GN-CK; G9166-GN-CI; J0330; J0360; J0456; J0692; J1335; J1644; J1650; J1815; J2250; J2704; J3370; Q9967